=== PATIENT | female | born 1985 | race Caucasian/White ===

== ENCOUNTER 2023-09-28 12:59 | Emergency (ER) | payer OTHER, SELFPAY ==
[2023-09-28] VITALS (13 sets, daily range): BP systolic 102–159; BP diastolic 65–100; PULSE 80–132; RESP 10–22; TEMP 36.7; O2SAT 97–100
--- NOTE | ~2023-09-28 | CT_ITS ---
EXAMINATION: CT abdomen pelvis w con DATE: 09/28/2023 18:16 INDICATION: N/V X1week, hx ETOH, elev lipase/lfts TECHNIQUE: Computed tomography (CT) of the abdomen and pelvis was performed with 100 mL Omnipaque-350 intravenous contrast. Automated exposure control and iterative reconstruction technique were employe d. The dose-length product was 377.72 mGy-cm. COMPARISON: None. FINDINGS: Lower thorax: Unremarkable Liver: Diffuse fatty infiltration Biliary/Gallbladder: Mildly distended gallbladder without gallstones or inflammatory change. No bile duct dilation. Pancreas: No mass or duct dilation. Spleen: Normal. Adrenals:No mass. Kidneys: No suspicious mass, obstructing stone, or hydronephrosis. GI tract: No small or large bowel dilation. Appendix not confidently visualized. Diverticulosis witho ut diverticulitis. Mesentery/Peritoneum: No ascites, mass, or free air. Retroperitoneum: No mass. Pelvis: Pelvic organs are within normal limits. Soft Tissues: Soft tissues and body wall unremarkable. Bones: No acute osseous finding. IMPRESSION: Hepatic steatosis. Mild esophagitis/gastritis. No CT findings of pancreatitis. Mild gallbladder hydrops, without cholelithiasis or inflammatory change. Reviewed, dictated and finalized at location K. TRIC RAZOR MECHANIC
--- NOTE | 2023-09-28 13:15 | ECG_ITS ---
Measurements Intervals [place] Rate: 106 P: 62 UT: 142 QRS: 63 QRSD: 96 T: 40 QT: 340 QTc: 453 Interpretive Statements SINUS TACHYCARDIA INCOMPLETE RIGHT BUNDLE BRANCH BLOCK BORDERLINE ST-T WAVE ABNORMALITY- ANTEROLAT/INF LEADS BASELINE ARTIFACT- I, II, III, AVR, AVL ABNORMAL ECG NO PREVIOUS ECG AVAILABLE FOR COMPARISON Electronically Signed On 09-28-2023 13:45:48 FOOD AIDE by Rich Fung D.O.
[2023-09-28 13:23] LABS: Basophils Absolute Auto 0.1 K/mm3 (0.0-0.1); Eosinophils Absolute Auto 0.1 K/mm3 (0-0.3); Hematocrit 45.1 % (37.0-47.0); Hemoglobin 15.7 g/dL (12.0-15.0); Immature Granulocyte Absolute 0.01 K/mm3 (0.00-0.031); Immature Granulocyte Percent A 0.1 % (0-0.5); Lymphocytes Absolute Auto 3.41 K/mm3 (0.9-3.2); Lymphocytes Percent Auto 43.4 % (18.3-44.2); Mean Corpuscular HGB Conc 34.8 g/dl (32-36); Mean Corpuscular Hemoglobin 32.6 pg (26-34); Mean Corpuscular Volume 93.6 fl (80-100); Mean Platelet Volume 9.3 fl (7.4-10.4); Monocytes Absolute Auto 0.6 K/mm3 (0.1-0.6); Monocytes Percent Auto 7.8 % (2.6-8.5); Neutrophils Absolute Auto 3.7 K/mm3 (1.3-6.7); Neutrophils Percent Auto 46.7 % (45.5-73.1); Platelet Count Result 210 k/mm3 (150-375); Red Blood Count 4.82 M/mm3 (4.2-5.4); Red Cell Distribution Width 12.5 % (11.5-14.5); White Blood Count 7.9 K/mm3 (4.5-10.0)
--- NOTE | 2023-09-28 13:26 | ED.GENADULT ---
HPI - General Adult General Chief complaint: Alcohol <Annette Mejia INDUSTRIAL SEAMSTRESS - Last Filed: 09/28/23 13:29> Stated complaint: im just sick <Annette Mejia INDUSTRIAL SEAMSTRESS - Last Filed: 09/28/23 13:29> Time Seen by Provider: 09/28/23 17:06 <Annette Mejia INDUSTRIAL SEAMSTRESS - Last Filed: 09/28/23 13:29> Source: patient <Callie Bocanegra PA-C - Last Filed: 09/29/23 01:24> Mode of arrival: ambulatory <Callie Bocanegra PA-C - Last Filed: 09/29/23 01:24> Limitations: no limitations <Callie Bocanegra PA-C - Last Filed: 09/29/23 01:24> History of Present Illness HPI narrative: Arin Desouza is a 38 y/o female who presents with reports of feeling sick for about 3 months, she states that she hasn't been able to keep anything down for about a week. She admits that she has a hx of Alcohol abuse/ seizures and she has had intermittent nausea/vomiting for months but consistently for 1 week. Last drink of alcohol was this morning. <Annette Ley March, INDUSTRIAL SEAMSTRESS - Last Filed: 09/28/23 13:29> Arin Desouza is a 38 y/o female who presents with reports of feeling sick for about 3 months, she states that she hasn't been able to keep anything down for about a week. She admits that she has a hx of Alcohol abuse/ seizures and she has had intermittent nausea/vomiting for months but consistently for 1 week. Last drink of alcohol was this morning. Drinks up to a 5th of vodka per day. Reports burning epigastric abdominal discomfort, subjective fevers. Denies rectal bleeding, hematemesis. Reports history of withdrawal symptoms when she goes without drinking. Denies history of withdrawal seizures. She does have history of epilepsy but does not currently take any anti epileptic medications. <Callie Bocanegra PA-C - Last Filed: 09/29/23 01:24> Related Data Allergies/adverse reactions: Allergies Allergy/AdvReac Type Severity Reaction Status Date / Time caffeine Allergy Mild Unknown Verified 09/28/23 16:00 tramadol Allergy Unknown seizures Verified 09/28/23 16:00 <Annette Mejia APRN - Last Filed: 09/28/23 13:29> Review of Systems Review of Systems: CONSTITUTIONAL See HPI. ENT: Denies rhinorrhea, congestion, sore throat. CARDIOVASCULAR: Denies chest pain. RESPIRATORY: Denies dyspnea. GASTROINTESTINAL: See PI. GENITOURINARY: Denies dysuria or hematuria. SKIN: Denies rash or itching. MUSCULOSKELETAL: Denies back pain, joint pain, or myalgia. <Callie Bocanegra PA-C - Last Filed: 09/29/23 01:24> All systems reviewed & are unremarkable except as noted in HPI and below <Callie Bocanegra PA-C - Last Filed: 09/29/23 01:24> Exam Narrative: GENERAL: Mildly unkempt appearing, well-nourished, non-toxic, in no acute distress. HEAD: Normocephalic, atraumatic. NECK: Supple. No adenopathy, no masses. RESPIRATORY: Airway patent, respirations nonlabored. Clear to auscultation bilaterally, no rales, rhonchi, wheezing. CARDIOVASCULAR: Borderline tachycardic with regular rhythm without murmurs, rubs, or gallops. Peripheral pulses 2+ and equal bilaterally. ABDOMINAL: Soft, diffuse tenderness of the upper abdomen, nondistended, no hepatosplenomegaly. Normoactive BS. MUSCULOSKELETAL: Moves all extremities. No gross deformities. SKIN: Warm, dry, normal color. Splotchy erythematous appearance of face. NEURO: A&O X3. Speech clear. Cranial nerves II-XII grossly intact. Steady gait. No ataxic movements. PSYCHIATRIC: Intermittently agitated. Normal interaction. <Callie Bocanegra PA-C - Last Filed: 09/29/23 01:24> Course Vital Signs Vital signs: Vital Signs Temperature 98.1 F 09/28/23 13:09 Pulse Rate 132 H 09/28/23 13:09 Respiratory Rate 20 09/28/23 13:09 Blood Pressure 159/100 H 09/28/23 13:09 Pulse Oximetry 99 09/28/23 13:09 Oxygen Delivery Room Air 09/28/23 13:09 Temperature 98.1 F 09/28/23 13:09 Pulse Rate 80 09/28/23 20:50 Respiratory Rate 19 09/28/23 20:50 Blood P
[2023-09-28 13:36] LABS: Alanine Aminotransferase 115 U/L (6-35); Alkaline Phosphatase 93 U/L (38-126); Anion Gap 16 mmol/L (8-16); Aspartate Amino Transferase 225 U/L (14-36); Bilirubin,Total 0.8 mg/dL (0.2-1.3); Blood Urea Nitrogen 15 mg/dL (7-17); Calcium 8.8 mg/dL (8.4-10.2); Carbon Dioxide 24 mmol/L (22-30); Chloride 101 mmol/L (98-107); Estimated CRCL calculation 103 ml/min; Estimated Glomerular Filt Rate > 60; Ethanol 235 mg/dL (<10); Glucose 108 mg/dL (65-110); Lipase 798 U/L (23-300); Potassium 3.7 mmol/L (3.4-5.0); Sodium 141 mmol/L (137-145)
[2023-09-28 14:07] LABS: Prothrombin Time 13.1 Seconds (11.1-14.7)
[2023-09-28 14:12] LABS: Magnesium 1.8 mg/dL (1.6-2.3)
[2023-09-28 14:59] LABS: Appearance Urine Clear (Clear); Bacteria Urine None Seen /hpf; Bilirubin Urine 1+ (Negative); Blood Urine Trace (Negative); Color Urine Dark Yellow (Yellow); Glucose Urine UA Negative (Negative); Ketones Urine Trace mg/dL (Negative); Leukocyte Esterase Ur Trace LEU/UL (Negative); Nitrate Urine Negative (Negative); Protein Urine 1+ mg/dL (Negative); Specific Grav Ur 1.027 (1.001-1.035); Squamous Epithelial Cell Urine None seen /hpf (Few); WBC Urine 0-5 /hpf
[2023-09-28 15:17] LABS: Add Urine Microscopic? YES
[2023-09-28] MEDS: SODIUM CHLORIDE 0.9% IV 1,000 ML 999 ML IV CONT ×2 (17:48)
[2023-09-28] MEDS: ONDANSETRON INJ 4 MG/2 ML VIAL IV PUSH (17:49)
[2023-09-28] MEDS: PANTOPRAZOLE SODIUM IV 40 MG VIAL IV PUSH (17:49)
[2023-09-28] MEDS: ONDANSETRON INJ 4 MG/2 ML VIAL (20:55)
== END 2023-09-28 20:50 | disposition home or self-care (01) ==
PROVIDERS: Nurse Practitioner Family; Student in an Organized Health Care Education/Training Program; Emergency Provider Physician Assistant
DX: R74.8 Abnormal levels of other serum enzymes (principal); F10.129 Alcohol abuse with intoxication, unspecified; R74.01 Elevation of levels of liver transaminase levels; Y90.7 Blood alcohol level of 200-239 mg/100 ml
CPT/HCPCS: 36415; 74177; 80053; 80307; 81001; 81025; 83690; 83735; 84100; 85025; 85610; 93005; 96361; 96374; 96375; 96376; 99284; C9113; J2405; J7030; Q9967

== ENCOUNTER 2023-10-09 23:15 | Observation (INO) | payer OTHER, SELFPAY ==
--- NOTE | ~2023-10-09 | CT_ITS ---
EXAMINATION: CTA chest PE abdomen pel DATE: 10/10/2023 01:50 INDICATION: Tachycardia, chest and abdominal TECHNIQUE: Computed tomography angiography (CTA) of the chest was performed with 100 mL Omnipaque-350 intravenous contrast timed to evaluate the pulmonary arteries. Subsequent postcontrast images of the abdomen and pelvis are obtained. Coronal maximum intensity projection 3D-reconstructions were create d by the technologist. The dose-length product (DLP) was 557.09 mGy-cm. Automated exposure control an d iterative reconstruction technique were employed. COMPARISON: 09/28/2023 FINDINGS: CTA CHEST: The pulmonary arteries are well-opacified. No pulmonary embolism is identified. No patholo gically enlarged thoracic lymph nodes are identified. The heart size is normal. There is mild circumf erential wall thickening of the distal esophagus which could reflect esophagitis. There is mild emphy sema. ABDOMEN/PELVIS CT: The liver is diffusely low in attenuation when compared with the spleen, consisten t with hepatic steatosis. Spleen, pancreas, gallbladder, and adrenal glands are normal. The kidneys a re unremarkable. No pathologically enlarged abdominal or pelvic lymph nodes are identified. No free i ntraperitoneal gas or evidence of bowel obstruction. There is severe lumbar spondylosis at L4-5. IMPRESSION: 1. No pulmonary embolus. 2. Circumferential wall thickening of the distal esophagus which may reflect esophagitis. 3. No acute abnormality in the abdomen or pelvis. Reviewed, dictated and finalized at location A. AINER SHOP WELDER IMPRESSION: 1. No pulmonary embolus. 2. Circumferential wall thickening of the distal esophagus which may reflect es ophagitis. 3. No acute abnormality in the abdomen or pelvis.
[2023-10-09 23:43] VITALS: BP 143/92; PULSE 145; RESP 18; TEMP 36.5; O2SAT 98
[2023-10-09 23:50] VITALS: BP 125/100; PULSE 124; RESP 20; O2SAT 97
[2023-10-09 23:51] VITALS: PULSE 121; RESP 19; O2SAT 97
[2023-10-09 23:51] LABS: Basophils Absolute Auto 0.1 K/mm3 (0.0-0.1); Basophils Percent Auto 0.9 % (0.2-1.2); Eosinophils Percent Auto 0.3 % (0-4.4); Hematocrit 47.4 % (37.0-47.0); Hemoglobin 16.1 g/dL (12.0-15.0); Immature Granulocyte Absolute 0.01 K/mm3 (0.00-0.031); Immature Granulocyte Percent A 0.1 % (0-0.5); Lymphocytes Absolute Auto 4.49 K/mm3 (0.9-3.2); Lymphocytes Percent Auto 48.8 % (18.3-44.2); Mean Corpuscular Hemoglobin 32.7 pg (26-34); Mean Corpuscular Volume 96.1 fl (80-100); Mean Platelet Volume 9.4 fl (7.4-10.4); Monocytes Absolute Auto 0.7 K/mm3 (0.1-0.6); Monocytes Percent Auto 7.4 % (2.6-8.5); Neutrophils Absolute Auto 3.9 K/mm3 (1.3-6.7); Neutrophils Percent Auto 42.5 % (45.5-73.1); Platelet Count Result 199 k/mm3 (150-375); Red Blood Count 4.93 M/mm3 (4.2-5.4); White Blood Count 9.2 K/mm3 (4.5-10.0)
[2023-10-10] VITALS (59 sets, daily range): BP systolic 85–134; BP diastolic 44–96; PULSE 70–134; RESP 12–32; TEMP 35.8–36.8; O2SAT 96–100; BMI 23.5
--- NOTE | 2023-10-10 | ECG_ITS ---
Measurements Intervals [place] Rate: 109 P: 72 [place]: 146 QRS: 71 QRSD: 90 T: 53 QT: 349 QTc: 471 Interpretive Statements SINUS TACHYCARDIA BORDERLINE ST ABNORMALITY- ANTEROLAT/INF LEADS ABNORMAL ECG NO PREVIOUS ECG AVAILABLE FOR COMPARISON Electronically Signed On 10-10-2023 9:18:22 CARDIOVASCULAR RN by Rich Fung D.O.
[2023-10-10 00:01] LABS: Alanine Aminotransferase 97 U/L (6-35); Albumin Level 5.2 g/dL (3.5-5.1); Alkaline Phosphatase 100 U/L (38-126); Anion Gap 24 mmol/L (8-16); Aspartate Amino Transferase 137 U/L (14-36); Bilirubin,Total 0.8 mg/dL (0.2-1.3); Blood Urea Nitrogen 19 mg/dL (7-17); Carbon Dioxide 18 mmol/L (22-30); Chloride 99 mmol/L (98-107); Estimated CRCL calculation 90 ml/min; Estimated Glomerular Filt Rate > 60; Glucose 75 mg/dL (65-110); Lipase 729 U/L (23-300); Potassium 4.1 mmol/L (3.4-5.0); Sodium 141 mmol/L (137-145)
[2023-10-10 00:55] LABS: Fractional Inspired Oxygen 21 %; HCO3 VBG 21.1 mEq/l (24.0-30.0); PCO2 VBG 35.9 mmHg (42.0-48.0); PO2 VBG 75.6 mmHg (35.0-45.0); pH VBG 7.387 (7.300-7.400)
[2023-10-10] MEDS: ONDANSETRON INJ 4 MG/2 ML VIAL IV PUSH ×2 (00:57→03:42)
[2023-10-10] MEDS: DEXTROSE 5%/LACTATED RINGERS 1,000 ML 999 ML IV CONT ×2 (00:57→00:58)
[2023-10-10] MEDS: PANTOPRAZOLE SODIUM IV 40 MG VIAL IV PUSH ×3 (00:57→21:38)
[2023-10-10 00:58] LABS: Device ROOM AIR
[2023-10-10 01:01] LABS: Appearance Urine Cloudy (Clear); Bacteria Urine Rare /hpf; Bilirubin Urine Negative (Negative); Blood Urine 3+ (Negative); Color Urine Dark Yellow (Yellow); Glucose Urine UA Negative (Negative); Hyaline Casts Urine Present /lpf; Ketones Urine 3+ mg/dL (Negative); Leukocyte Esterase Ur Negative LEU/UL (Negative); Need Manual Microscopic Reviewed; Nitrate Urine Negative (Negative); Protein Urine 2+ mg/dL (Negative); Specific Grav Ur 1.022 (1.001-1.035); Squamous Epithelial Cell Urine Moderate /hpf (Few); WBC Urine 0-5 /hpf; pH Urine 5.5 (5.0-9.0)
--- NOTE | 2023-10-10 01:01 | ED.ABDPAIN ---
HPI - Abdominal Pain General Chief Complaint: Abdominal Pain <Tonya Jeffrey PA-C - Last Filed: 10/10/23 17:03> Stated Complaint: N/V, abd pain <Tonya Jeffrey PA-C - Last Filed: 10/10/23 17:03> Time Seen by Provider: 10/09/23 23:48 <Tonya Jeffrey PA-C - Last Filed: 10/10/23 17:03> History of Present Illness HPI narrative: 38-year-old female with a history of alcoholism and epilepsy reports for evaluation for multiple medical complaints. Patient states for multiple weeks, she has been on able to keep any water or food down. States she has had 3 dental holes into crackers in total since she was seen in the ED on 09/28/2023 for nausea and vomiting. Patient notes that she drinks approximately a 5th of vodka per day, however has decreased her alcohol intake secondary to vomiting. States she has had 1 pt of alcohol a day. She reports subjective fevers, epigastric abdominal pain, nausea and vomiting. She reports she may have seen blood in her vomit after she saw streaks and pieces of red and brown in her vomit. She also states that she may have had a few episodes of dark tarry stools but denies hematochezia. She reports difficulty breathing and intermittent substernal chest pain. States the chest pain occurs at night and wake her up at night, however she is not currently having chest pain. She denies radiating pain, aggravating or alleviating factors. States when the pain occurs last approximately 1 minute. She does not history of COPD and chronic bronchitis and states that she has had a productive cough for 1 week. She knows she has been recently exposed to COVID. Her last alcoholic drink was prior to arrival. The patient was seen in the ED on 09/28/2023, she was found to be intoxicated in her workup at that time was significant for an elevated lipase in the 700s. She was sent home with Protonix and Zofran and advised to follow closely with PCP. Patient states she has been taking the Zofran as directed, however has not been taking her Protonix daily because it gives her migraines. She denies recent seizures, hallucinations, dysuria or hematuria.. States she does not take any antiepileptics for her diagnosis of epilepsy because she has not seen a healthcare provider in 6 years. When asked why she is not been seen she says, ?because if anything is wrong with me, I don't want to know. She has scheduled an appointment with a PCP on October 27. LMP 1.5 weeks ago. <Tonya Jeffrey PA-C - Last Filed: 10/10/23 17:03> Related Data Allergies/Adverse Reactions: Allergies Allergy/AdvReac Type Severity Reaction Status Date / Time caffeine Allergy Mild Unknown Verified 09/28/23 16:00 tramadol Allergy Unknown seizures Verified 09/28/23 16:00 <Tonya Jeffrey PA-C - Last Filed: 10/10/23 17:03> Review of Systems Review of Systems: CONSTITUTIONAL: Denies fever, chills, or sweats. EYES: Denies visual changes, redness, or discharge. ENT: Denies rhinorrhea, congestion, sore throat, or otalgia. CARDIOVASCULAR: See HPI RESPIRATORY: See HPI GASTROINTESTINAL: See HPI GENITOURINARY: Denies dysuria or hematuria. SKIN: Denies rash or itching. MUSCULOSKELETAL: Denies back pain, joint pain, or myalgia. NEUROLOGIC: Denies headache, numbness, or weakness. PSYCHIATRIC: Denies anxiety or depression. <Tonya Jeffrey PA-C - Last Filed: 10/10/23 17:03> [facility] Past Medical History Medical History: Medical History (Updated 10/10/23 @ 13:22 by Jovanni Sellers MD) Chronic bronchitis Mitral valve prolapse Seizure off meds 5-6yrs SVT (supraventricular tachycardia) <Tonya Jeffrey PA-C - Last Filed: 10/10/23 17:03> Surgical History Surgical History: Surgical History (Updated 10/10/23 @ 13:13 by Jovanni Sellers MD) No history of previous surgery <Tonya Jeffrey PA-C - Last Filed: 10/10/23 17:03> Family History Family History: Family History (Updated 10/10/23 @ 13
[2023-10-10 01:02] LABS: Add Urine Microscopic? YES
[2023-10-10 01:05] LABS: Urine Pregnancy Test Negative
[2023-10-10 01:06] LABS: Pregnancy On Board Control Positive
[2023-10-10 01:07] LABS: Ethanol 292 mg/dL (<10); Lactic Acid Reflex 3.5 mmol/L (0.7-2.0); Magnesium 1.8 mg/dL (1.6-2.3)
--- NOTE | 2023-10-10 01:16 | PC.NURSE ---
Patient taken to CT via stretcher at this time.
[2023-10-10 01:20] LABS: NT Pro B Type Natriuretic Pept 27 pg/mL (19.9-100); Troponin I < 0.012 ng/mL (0.000-0.034)
[2023-10-10 01:34] LABS: Prothrombin Time 13.7 Seconds (11.1-14.7)
[2023-10-10] MEDS: LACTATED RINGERS 1,000 ML 999 ML IV CONT (03:41)
[2023-10-10] MEDS: BELLADONNA ALK/PHENOB ELIX 10 ML, MAG HYDROX/ALUMINUM HYD/SIMETH 30 ML, LIDOCAINE HCL 2... PO (03:42)
[2023-10-10 03:54] LABS: Reflex Lactic Acid Yes or No Add Lactic
[2023-10-10 06:07] LABS: Lactic Acid Reflex 2.9 mmol/L (0.7-2.0)
[2023-10-10 06:41] LABS: Influenza A QL RT-PCR Negative (Negative); Influenza B QL RT-PCR Negative (Negative); SARS-CoV-2 RNA PCR Negative (Negative)
[2023-10-10] MEDS: METOCLOPRAMIDE HCL INJ 10 MG/2 ML VIAL IV PUSH (06:57)
[2023-10-10] MEDS: THIAMINE 500 MG/NS 100 ML 500 MG/100 ML BAG 200 MG IVPB (08:03)
--- NOTE | 2023-10-10 08:52 | ADMGEN ---
This patient, Arin Roger, was admitted to IMU Room 204-01. Patient/family oriented to hospital policies and general routines including ID bracelet, bed and alarms, visiting hours, pain management, procedures, bathroom and other care routines, personal items, smoking policy, room service/diet, and visiting hours. Information on how to activate the Rapid Response Team has been discussed. Patient/Family are encouraged to report perceived risks to care and to ask questions if they do not understand what they are told or what they should do.
[2023-10-10] MEDS: LORazepam INJ (*CRX) 2 MG/ML VIAL IV PUSH ×4 (09:05→21:46)
[2023-10-10] MEDS: SODIUM CHLORIDE 0.9% IV 1,000 ML 150 ML IV CONT ×3 (09:05→23:31)
[2023-10-10 09:22] LABS: Basophils Percent Auto 0.6 % (0.2-1.2); Hematocrit 37.1 % (37.0-47.0); Hemoglobin 12.7 g/dL (12.0-15.0); Immature Granulocyte Absolute 0.01 K/mm3 (0.00-0.031); Immature Granulocyte Percent A 0.2 % (0-0.5); Lymphocytes Absolute Auto 1.23 K/mm3 (0.9-3.2); Mean Corpuscular HGB Conc 34.2 g/dl (32-36); Mean Corpuscular Hemoglobin 32.6 pg (26-34); Mean Corpuscular Volume 95.4 fl (80-100); Mean Platelet Volume 9.5 fl (7.4-10.4); Monocytes Absolute Auto 0.5 K/mm3 (0.1-0.6); Monocytes Percent Auto 11.2 % (2.6-8.5); Neutrophils Absolute Auto 2.9 K/mm3 (1.3-6.7); Platelet Count Result 133 k/mm3 (150-375); Red Blood Count 3.89 M/mm3 (4.2-5.4); Red Cell Distribution Width 12.9 % (11.5-14.5); White Blood Count 4.7 K/mm3 (4.5-10.0)
[2023-10-10 09:31] LABS: Anion Gap 15 mmol/L (8-16); Blood Urea Nitrogen 14 mg/dL (7-17); Calcium 8.5 mg/dL (8.4-10.2); Carbon Dioxide 20 mmol/L (22-30); Chloride 100 mmol/L (98-107); Estimated CRCL calculation 148 ml/min; Estimated Glomerular Filt Rate > 60; Glucose 78 mg/dL (65-110); Lactic Acid 1.9 mmol/L (0.7-2.0); Potassium 3.9 mmol/L (3.4-5.0); Sodium 135 mmol/L (137-145)
[2023-10-10] MEDS: SUCRALFATE SUSP 100 MG/ML 10 ML UDC 1000 MG PO ×3 (11:20→21:38)
[2023-10-10 11:57] LABS: Glucose Point of Care 63 mg/dl (65-105)
[2023-10-10 11:57] LABS: Glucose Point of Care 92 mg/dl (65-105)
--- NOTE | 2023-10-10 12:39 | PM.IMHP ---
H&P: HPI History of Present Illness Date/Time: 10/10/23 12:39 Chief Complaint: 'I've been drinking too much' Narrative: 38yo female with hx of alcoholism, seizures and SVT here for nausea and vomiting. Patient drinks a 5th of alcohol per day for ?long time?. She has been to rehab in the past with her last time about 5 years ago. She has a history of DTs but no history of withdrawal seizures. She has a hx of seizures and took herself off medications 5-6 years ago. She does not drive. She has never had a DUI. Her last drink was just prior to coming to the emergency last night. Patient developed nausea and vomiting few weeks ago. She presented to the emergency room on 09/28/2023 with a complain of 3 month history of feeling sick. Patient was given IV fluids, antiemetics and Protonix. She felt better was able to tolerate oral intake. According to her boyfriend, patient continued to feel well up until about 4 days ago when she had recurrence of her symptoms of nausea and vomiting. She is still able to drink vodka but is unable to tolerate oral intake otherwise. She has been feeling hot and cold that she thinks she has fevers. She has been having sweats. She has epigastric ?burning?. She denies any melena, hematochezia or hematemesis but mentioned to the ER doctor that she was having dark tarry stools. She did have an episode of chest pain a few days ago that lasted few seconds. It occurred at rest. She has been feeling slightly shortness of breath but does have a chronic bronchitis with chronic cough productive yellow sputum. No dysuria or hematuria. No lower abdominal pain or back pain. Because of the symptoms, she presented emergency room for evaluation. Emergency room she was tachycardic at 145 with a blood pressure 143/92. She was 98% on room air. EKG showed sinus tachycardia with a heart rate of 109. Stool was guaiac negative. cTA of the chest showed no PE. No focal infiltrates or effusions. CT the abdomen pelvis showed no acute findings but did show severe hepatic steatosis. The pancreas and gallbladder appeared normal. test was negative. Lactic acid was 3.5. Serum bicarb was 18 with anion gap 24. AST and ALT are mildly elevated but improved from 9 days ago. Troponin was negative. BNP was 27. Lipase was 729 also improved from 9 days ago. Urinalysis showed 2+ protein, 3+ ketones and 3+ blood with 6-10 red cells. She was treated with Zofran Protonix and IV fluids. She was admitted for further care. Review of Systems Review of Systems: All systems reviewed & are unremarkable except as noted in HPI and below PMFSH Past Medical History Medical History (Updated 10/10/23 @ 13:22 by Jovanni Sellers MD) Chronic bronchitis Mitral valve prolapse Seizure off meds 5-6yrs SVT (supraventricular tachycardia) Surgical History Surgical History (Updated 10/10/23 @ 13:13 by Jovanni Sellers MD) No history of previous surgery Family History Family History (Updated 10/10/23 @ 13:14 by Jovanni Sellers MD) Mother Lung cancer Father Seizure Social History Social History (Updated 10/10/23 @ 13:15 by Jovanni Sellers MD) Social History: She lives with her boyfriend and a friend. She smokes a pack a day for the past 27 years. Alcohol use as mentioned above. She smokes marijuana but denies drug use or history of IV drug use. She is full code. She nominates her sister to be the individual who would make medical decisions for her if she is unable. Smoking packs per day: 1 Smoking cigarettes per day: 20.0 Smoking status: Current every day smoker Tobacco type: cigarettes Alcohol intake: current Drinks per week: 7 Substance use: current Substance use type: marijuana Other substance usage details: Drinks 1 pint of vodka a day. Lack of Transportation: No Lack of Food: Never True Current Housing: I Have Housing Concerned About Future Housing: Decline to Answer Difficulty Pa
[2023-10-10 13:38] LABS: Creatine Kinase 51 U/L (30-135)
[2023-10-10 17:49] LABS: Glucose Point of Care 119 mg/dl (65-105)
[2023-10-10] MEDS: chlordiazePOXIDE (*CRX) 25 MG CAPSULE PO ×2 (18:22→23:34)
[2023-10-11] VITALS (8 sets, daily range): BP systolic 106–116; BP diastolic 71–78; PULSE 56–82; RESP 16–18; TEMP 36.1–36.6; O2SAT 98–100
[2023-10-11] MEDS: LORazepam INJ (*CRX) 2 MG/ML VIAL IV PUSH ×2 (02:31→08:16)
[2023-10-11 04:46] LABS: Hematocrit 38.2 % (37.0-47.0); Hemoglobin 12.8 g/dL (12.0-15.0); Immature Platelet Fraction Pct 6.9 % (0.9-11.2); Mean Corpuscular HGB Conc 33.5 g/dl (32-36); Mean Corpuscular Hemoglobin 32.7 pg (26-34); Mean Corpuscular Volume 97.7 fl (80-100); Mean Platelet Volume 11.1 fl (7.4-10.4); Platelet Count Result 99 k/mm3 (150-375); Red Blood Count 3.91 M/mm3 (4.2-5.4); Red Cell Distribution Width 12.6 % (11.5-14.5); White Blood Count 6.4 K/mm3 (4.5-10.0)
[2023-10-11 05:11] LABS: Potassium 3.4 mmol/L (3.4-5.0)
[2023-10-11 05:15] LABS: Alanine Aminotransferase 72 U/L (6-35); Albumin Level 3.8 g/dL (3.5-5.1); Alkaline Phosphatase 67 U/L (38-126); Anion Gap 9 mmol/L (8-16); Aspartate Amino Transferase 137 U/L (14-36); Bilirubin,Total 1.7 mg/dL (0.2-1.3); Blood Urea Nitrogen 13 mg/dL (7-17); Calcium 8.6 mg/dL (8.4-10.2); Carbon Dioxide 24 mmol/L (22-30); Chloride 99 mmol/L (98-107); Estimated CRCL calculation 121 ml/min; Estimated Glomerular Filt Rate > 60; Glucose 74 mg/dL (65-110); Sodium 132 mmol/L (137-145)
[2023-10-11] MEDS: chlordiazePOXIDE (*CRX) 25 MG CAPSULE PO ×2 (05:59→11:36)
[2023-10-11] MEDS: SUCRALFATE SUSP 100 MG/ML 10 ML UDC 1000 MG PO ×2 (05:59→11:37)
[2023-10-11] MEDS: SODIUM CHLORIDE 0.9% IV 1,000 ML 150 ML IV CONT (05:59)
[2023-10-11] MEDS: FOLIC ACID 1 MG TABLET PO (08:14)
[2023-10-11] MEDS: MULTIVITAMINS THERAPEUTIC TAB (*BKC) 1 TABLET PO (08:14)
[2023-10-11] MEDS: POTASSIUM CHLORIDE 20 MEQ ER TABLET PO (08:14)
[2023-10-11] MEDS: THIAMINE HCL 200 MG/2 ML VIAL 100 MG IV PUSH (08:15)
[2023-10-11] MEDS: PANTOPRAZOLE SODIUM IV 40 MG VIAL IV PUSH (08:15)
[2023-10-11 13:04] LABS: Glucose Point of Care 84 mg/dl (65-105)
--- NOTE | 2023-10-11 14:01 | PM.DS ---
DS: Admitting Diagnosis Discharge Date 10/11/23 Admitting Diagnosis nausea and vomiting DS: Discharge Diagnosis Discharge Diagnosis (1) Alcohol intoxication: Qualifiers: Complication of substance-induced condition: uncomplicated Qualified Code(s): F10.920 - Alcohol use, unspecified with intoxication, uncomplicated Code(s): F10.929 - Alcohol use, unspecified with intoxication, unspecified Status: Acute (2) Alcoholic ketoacidosis: Code(s): E87.29 - Other acidosis Status: Acute (3) Nausea & vomiting: Qualifiers: Vomiting type: unspecified Qualified Code(s): R11.2 - Nausea with vomiting, unspecified Code(s): R11.2 - Nausea with vomiting, unspecified Status: Acute (4) Alcoholic fatty liver: Code(s): K70.0 - Alcoholic fatty liver Status: Acute (5) Dehydration: Code(s): E86.0 - Dehydration Status: Acute (6) Atypical chest pain: Code(s): R07.89 - Other chest pain Status: Acute (7) Tobacco abuse: Code(s): Z72.0 - Tobacco use Status: Acute (8) Lactic acidosis: Code(s): E87.20 - Acidosis, unspecified Status: Acute (9) Alcohol withdrawal: Code(s): F10.939 - Alcohol use, unspecified with withdrawal, unspecified Status: Acute DS: Summary Hospital Course Reason for hospitalization: 38yo female with hx of alcoholism, seizures and SVT here for nausea and vomiting. Please see H&P for details. Hospital Course: Patient was tachycardic at 145 with a blood pressure 143/92.? She was 98% on room air.? EKG showed sinus tachycardia with a heart rate of 109.? Stool was guaiac negative.? CTA of the chest showed no PE.? No focal infiltrates or effusions.? CT the abdomen pelvis showed no acute findings but did show severe hepatic steatosis which has been seen before.? The pancreas and gallbladder appeared normal.? test was negative.? Lactic acid was 3.5.? Serum bicarb was 18 with anion gap 24.? AST and ALT are mildly elevated but improved from 9 days ago.? Troponin was negative.? BNP was 27.? Lipase was 729 also improved from 9 days ago.? Urinalysis showed 2+ protein, 3+ ketones and 3+ blood with 6-10 red cells.? She was treated with Zofran, Protonix and IV fluids.?She was also started on thiamine, folate and scheduled Librium. She was covered for gastritis with carafate and protonix. She had clinical improvement. Her anion gap closed. Platelet count was low felt related to direct toxic effects of alcohol on the bone marrow and/or from sequestration. She is up walking in the room. She is eating and toelrating it. She feels much better and feels ready for discharge. She was educated about the benefits of abstaining from alcohol. She was given information about resources to help stop drinking alcohol. Status at Discharge Cognitive/behavioral status at discharge: stable Time Spent with Patient Time attestation: Total time spent providing and/or coordinating discharge services:36 minutes Time spent: Greater than 30 minutes Exam Narrative: AF 97.6 109/78 71 18 99% ra Gen - NARD Chest - CTA bilaterally, nml RR CV - RRR S1/S2; Tele showing no significant dysrhythmias Abd -soft. Nontender. Positive sounds Ext -no pedal edema Psych - normal mood and affect. Minimal tremor noted Skin - warm and dry. DS: Data Data Completed and Pending Labs on day of discharge: Labs from last 24 hours 10/11/23 10/11/23 10/10/23 11:19 04:23 17:46 WBC 6.4 RBC 3.91 L Hgb 12.8 Hct 38.2 MCV 97.7 MCH 32.7 MCHC 33.5 RDW 12.6 Plt Count 99 L MPV 11.1 H % Immature Plt Fraction 6.9 Sodium 132 L Potassium 3.4 Chloride 99 Carbon Dioxide 24 Anion Gap 9 BUN 13 Creatinine 0.50 L Estim Creat Clear Calc 121 Estimated GFR > 60 Glucose 74 POC Capillary Glucose 84 119 H Calcium 8.6 Total Bilirubin 1.7 H AST 13
== END 2023-10-11 14:30 | disposition home or self-care (01) ==
LOC: ANHED 10-10 06:59 → ANHIMU 10-11 14:11
PROVIDERS: Emergency Medicine; Admitting Provider Internal Medicine; Emergency Provider Physician Assistant; PCP Internal Medicine Gastroenterology; Visit Provider Internal Medicine
DX: F10.920 Alcohol use, unspecified with intoxication, uncomplicated (principal); Y90.7 Blood alcohol level of 200-239 mg/100 ml; E87.29 Other acidosis; K70.0 Alcoholic fatty liver; E86.0 Dehydration; R07.89 Other chest pain; G40.909 Epilepsy, unspecified, not intractable, without status epilepticus; J42 Unspecified chronic bronchitis; I47.10 Supraventricular tachycardia, unspecified; R94.31 Abnormal electrocardiogram [ECG] [EKG]; Z20.822 Contact with and (suspected) exposure to COVID-19; F17.210 Nicotine dependence, cigarettes, uncomplicated; F12.90 Cannabis use, unspecified, uncomplicated; Z79.899 Other long term (current) drug therapy
CPT/HCPCS: 36415; 71275; 74177; 80048; 80053; 80307; 81001; 81025; 82550; 82803; 82948; 83605; 83690; 83735; 83880; 84484; 85025; 85027; 85055; 85610; 85730; 87636; 93005; 96361; 96365; 96375; 96376; 99285; A9270; C9113; G0378; G0379; J2060; J2405; J2765; J3411; J7030; J7120; J7121; Q9967

== ENCOUNTER 2023-11-09 20:09 | Inpatient (IN) | payer OTHER, SELFPAY ==
--- NOTE | ~2023-11-09 | CT_ITS ---
EXAMINATION: CT abdomen pelvis w con DATE: 11/10/2023 06:18 INDICATION: Abdominal pain. TECHNIQUE: Computed tomography (CT) of the abdomen and pelvis was performed with 100 mL Omnipaque 350 intravenous contrast. Automated exposure control and iterative reconstruction technique were employe d. The dose-length product was 297.15 mGy-cm. COMPARISON: CT abdomen and pelvis 10/10/2023 FINDINGS: The visualized portions of the lung bases demonstrate mild atelectasis. No pleural effusion . The heart size is normal. No pericardial effusion. There is diffuse hepatic steatosis. The gallblad mack and spleen are normal. There is fat stranding around the head of the pancreas, consistent with ac [facility] interstitial pancreatitis. The adrenal glands are normal. There is cortical thinning of the kidne ys. There are no dilated loops of bowel. The appendix is not visualized. There are no pathologically enlarged lymph nodes. There is wall thickening of the distal esophagus. There is physiologic fluid in the pelvis. There is lumbar levoscoliosis and severe spondylosis. IMPRESSION: 1. Acute interstitial pancreatitis. 2. Diffuse hepatic steatosis. 3. Wall thickening of the distal esophagus, likely esophagitis. Reviewed, dictated and finalized at location E. STO WRITER OPERATOR
[2023-11-09 20:12] VITALS: BP 135/107; PULSE 121; RESP 16; TEMP 36.2; O2SAT 100
[2023-11-09 20:28] LABS: Basophils Absolute Auto 0.1 K/mm3 (0.0-0.1); Basophils Percent Auto 0.5 % (0.2-1.2); Eosinophils Absolute Auto 0.1 K/mm3 (0-0.3); Eosinophils Percent Auto 0.6 % (0-4.4); Hematocrit 46.4 % (37.0-47.0); Immature Granulocyte Absolute 0.02 K/mm3 (0.00-0.031); Immature Granulocyte Percent A 0.2 % (0-0.5); Lymphocytes Absolute Auto 1.75 K/mm3 (0.9-3.2); Lymphocytes Percent Auto 15.5 % (18.3-44.2); Mean Corpuscular HGB Conc 34.5 g/dl (32-36); Mean Corpuscular Volume 95.7 fl (80-100); Mean Platelet Volume 10.3 fl (7.4-10.4); Monocytes Percent Auto 8.6 % (2.6-8.5); Neutrophils Absolute Auto 8.4 K/mm3 (1.3-6.7); Neutrophils Percent Auto 74.6 % (45.5-73.1); Platelet Count Result 147 k/mm3 (150-375); Red Blood Count 4.85 M/mm3 (4.2-5.4); Red Cell Distribution Width 12.9 % (11.5-14.5); White Blood Count 11.3 K/mm3 (4.5-10.0)
[2023-11-09 20:38] LABS: Ethanol 149 mg/dL (<10)
[2023-11-10] VITALS (12 sets, daily range): BP systolic 102–113; BP diastolic 64–82; PULSE 77–102; RESP 14–27; TEMP 36.3–36.8; O2SAT 98–100; BMI 22.5
[2023-11-10 03:46] LABS: Alanine Aminotransferase 236 U/L (6-35); Albumin Level 4.5 g/dL (3.5-5.1); Alkaline Phosphatase 114 U/L (38-126); Anion Gap 20 mmol/L (8-16); Aspartate Amino Transferase 555 U/L (14-36); Blood Urea Nitrogen 20 mg/dL (7-17); Calcium 9.5 mg/dL (8.4-10.2); Carbon Dioxide 22 mmol/L (22-30); Chloride 88 mmol/L (98-107); Estimated CRCL calculation 121 ml/min; Estimated Glomerular Filt Rate > 60; Glucose 81 mg/dL (65-110); Potassium 3.2 mmol/L (3.4-5.0); Sodium 130 mmol/L (137-145)
[2023-11-10 04:07] LABS: Lipase 5443 U/L (23-300)
[2023-11-10] MEDS: THIAMINE 500 MG/NS 100 ML 500 MG/100 ML BAG 200 MG IVPB (05:03)
[2023-11-10] MEDS: PROCHLORPERAZINE EDISYLATE 10 MG/2 ML VIAL IV PUSH (05:03)
[2023-11-10] MEDS: SODIUM CHLORIDE 0.9% IV 1,000 ML 999 ML IV CONT ×2 (05:03→06:03)
[2023-11-10 06:16] LABS: Appearance Urine Cloudy (Clear); Bacteria Urine Rare /hpf; Bilirubin Urine 1+ (Negative); Blood Urine 2+ (Negative); Color Urine Dark Yellow (Yellow); Glucose Urine UA Negative (Negative); Ketones Urine 4+ mg/dL (Negative); Leukocyte Esterase Ur 1+ LEU/UL (Negative); Nitrate Urine Positive (Negative); Protein Urine 2+ mg/dL (Negative); Specific Grav Ur 1.022 (1.001-1.035); Squamous Epithelial Cell Urine Few /hpf (Few); WBC Urine 51-100 /hpf; pH Urine 5.5 (5.0-9.0)
[2023-11-10 06:24] LABS: Add Urine Microscopic? YES
--- NOTE | 2023-11-10 06:30 | ED.GENADULT ---
HPI - General Adult General Chief complaint: Alcohol Stated complaint: alcohol w/drawl Time Seen by Provider: 11/10/23 04:18 History of Present Illness HPI narrative: Patient is a 38-year-old female who presents emergency department with chief complaint of nausea vomiting and abdominal pain. The patient has history of alcoholism and was actually admitted to the hospital recently for alcohol withdrawal the patient states that she was discharged home on a Librium taper and ran out a Librium and started drinking again patient reports that she has been able to keep fluids down reports he feels extremely dehydrated and reports that she has pain in the epigastric region. The patient reports that she has noticed that she has had a little bit of coffee-ground colored vomit the patient reports that she has also started to feel shaky because she has not been able to drink her normal amount. Related Data Allergies Allergy/AdvReac Type Severity Reaction Status Date / Time caffeine Allergy Mild Unknown Verified 11/10/23 03:09 tramadol Allergy Unknown seizures Verified 11/10/23 03:09 Review of Systems Review of Systems: A 10 system review of systems was completed on the patient and is negative except for what is stated in the HPI. Nursing and ancillary documentation was reviewed. [facility] Past Medical History Medical History Alcohol withdrawal Chronic bronchitis Mitral valve prolapse Seizure off meds 5-6yrs SVT (supraventricular tachycardia) Surgical History Surgical History No history of previous surgery Family History Family History Mother Lung cancer Father Seizure Social History Social History Social History: She lives with her boyfriend and a friend. She smokes a pack a day for the past 27 years. Alcohol use as mentioned above. She smokes marijuana but denies drug use or history of IV drug use. She is full code. She nominates her sister to be the individual who would make medical decisions for her if she is unable. Smoking packs per day: 1 Smoking cigarettes per day: 20.0 Smoking status: Current every day smoker Tobacco type: cigarettes Alcohol intake: current Drinks per week: 7 Substance use: current Substance use type: marijuana Other substance usage details: Drinks 1 pint of vodka a day. Lack of Transportation: No Lack of Food: Never True Current Housing: I Have Housing Concerned About Future Housing: Decline to Answer Difficulty Paying Gas/Electric Bills: Decline to Answer Difficulty Paying for Meds: Decline to Answer Currently Unemployed: Decline to Answer Education: Decline to Answer Difficulty w/ Childcare or Family Care: Decline to Answer Spiritual care concerns: No Exam Narrative: GENERAL: Well-appearing, well-nourished, and in no acute distress. HEAD: Normocephalic, atraumatic. EYES: PERRLA and EOMI. ENT: Nares clear, no rhinorrhea or epistaxis. Mucous membranes dry. NECK: Supple. CHEST: Clear to auscultation. No respiratory distress. HEART: Regular rate and rhythm. No murmur heard. Normal peripheral pulses. ABDOMEN: Soft, tenderness to palpation epigastric region, nondistended, normal active bowel sounds. EXTREMITIES: Normal range of motion. No edema. SKIN: Warm, dry, no rash. NEURO: No focal deficits. Alert and oriented x3. PSYCH: Normal mood and affect. Course Vital Signs Vital signs: Vital Signs Temperature 36.2 C L 11/09/23 20:12 Pulse Rate 121 H 11/09/23 20:12 Respiratory Rate 16 11/09/23 20:12 Blood Pressure 135/107 H 11/09/23 20:12 Pulse Oximetry 100 11/09/23 20:12 Oxygen Delivery Room Air 11/09/23 20:12 Temperature 36.2 C L 11/09/23 20:12 Pulse Rate 92 11/10/23 05
--- NOTE | 2023-11-10 07:34 | PC.NURSE ---
Per Darshana VARELA and Maria R Krishnamurthy, pt is admitted to a room - waiting on room to be cleaned. This RN assumed care of pt, she is resting and alert to verbal stimuli - understanding of awaiting room assignment. Pt lights dimmed and fluids infused. No request at this time. VSS.
[2023-11-10] MEDS: KCL 20 MEQ/D5/0.45% SOD CHL 1,000 ML 125 ML IV CONT (08:27)
--- NOTE | 2023-11-10 08:30 | ADMGEN ---
This patient, Arin Roger, was admitted to IMU Room 206-02. Patient/family oriented to hospital policies and general routines including ID bracelet, bed and alarms, visiting hours, pain management, procedures, bathroom and other care routines, personal items, smoking policy, room service/diet, and visiting hours. Information on how to activate the Rapid Response Team has been discussed. Patient/Family are encouraged to report perceived risks to care and to ask questions if they do not understand what they are told or what they should do.
[2023-11-10 09:37] LABS: Basophils Percent Auto 0.5 % (0.2-1.2); Eosinophils Percent Auto 0.5 % (0-4.4); Hematocrit 36.2 % (37.0-47.0); Hemoglobin 12.5 g/dL (12.0-15.0); Immature Granulocyte Absolute 0.01 K/mm3 (0.00-0.031); Immature Granulocyte Percent A 0.2 % (0-0.5); Immature Platelet Fraction Pct 7.1 % (0.9-11.2); Lymphocytes Absolute Auto 0.96 K/mm3 (0.9-3.2); Lymphocytes Percent Auto 15.3 % (18.3-44.2); Mean Corpuscular HGB Conc 34.5 g/dl (32-36); Mean Corpuscular Hemoglobin 33.2 pg (26-34); Mean Platelet Volume 10.3 fl (7.4-10.4); Monocytes Absolute Auto 0.5 K/mm3 (0.1-0.6); Monocytes Percent Auto 7.5 % (2.6-8.5); Neutrophils Absolute Auto 4.8 K/mm3 (1.3-6.7); Platelet Count Result 110 k/mm3 (150-375); Red Blood Count 3.77 M/mm3 (4.2-5.4); Red Cell Distribution Width 12.6 % (11.5-14.5); White Blood Count 6.3 K/mm3 (4.5-10.0)
[2023-11-10 09:55] LABS: Alanine Aminotransferase 179 U/L (6-35); Albumin Level 3.5 g/dL (3.5-5.1); Alkaline Phosphatase 80 U/L (38-126); Anion Gap 14 mmol/L (8-16); Aspartate Amino Transferase 360 U/L (14-36); Bilirubin,Total 1.9 mg/dL (0.2-1.3); Blood Urea Nitrogen 18 mg/dL (7-17); Carbon Dioxide 22 mmol/L (22-30); Chloride 96 mmol/L (98-107); Estimated CRCL calculation 121 ml/min; Estimated Glomerular Filt Rate > 60; Glucose 84 mg/dL (65-110); Potassium 3.5 mmol/L (3.4-5.0); Sodium 132 mmol/L (137-145)
[2023-11-10 10:29] LABS: Lipase 4362 U/L (23-300)
[2023-11-10] MEDS: MORPHINE SULFATE (*CRX) 2 MG/ML INJ IV PUSH ×3 (10:44→21:33)
[2023-11-10 11:19] LABS: Glucose Point of Care 84 mg/dl (65-105)
[2023-11-10] MEDS: chlordiazePOXIDE (*CRX) 25 MG CAPSULE PO ×2 (13:23→21:27)
--- NOTE | 2023-11-10 17:10 | PM.IMHP ---
H&P: HPI History of Present Illness Date/Time: 11/10/23 1115 Chief Complaint: Abdominal pain Nausea and vomiting Narrative: 11/10: patient is a 38-year-old female who presents to the emergency department with complaints of nausea, vomiting, abdominal pain for the past 2 weeks and worsening. Patient states at that time she had been in the hospital with similar symptoms and capped for 23 hour observation and discharged on a Librium taper. Significant other states as soon as patient got home she was trying to reduce her drinking and for the past 2 weeks has only consumed half a pint of vodka daily when her normal is 1 pint daily. Significant other states they had called a few rehab facilities and could not get her placed before the end of the year. Patient reports a small amount of coffee-ground emesis. Review of Systems Review of Systems: All systems reviewed & are unremarkable except as noted in HPI and below Gastrointestinal: Gastrointestinal: Reports as per HPI, Reports abdominal pain ( Generalized but worse to the epigastrium and left upper quadrant), Reports nausea and Reports vomiting ( small amount of coffee-ground emesis) Comments: patient reports she has not been able to keep any food or fluid down for the past several days Psychiatric: Psychiatric: Reports anxiety and Reports depression Comments: patient reports this time here is very hard on her as her mom this month and this month is also her mom's birthday. [facility] Past Medical History Medical History Alcohol withdrawal Chronic bronchitis Mitral valve prolapse Seizure off meds 5-6yrs SVT (supraventricular tachycardia) Surgical History Surgical History No history of previous surgery Family History Family History Mother Lung cancer Father Seizure Social History Social History Social History: She lives with her boyfriend and a friend. She smokes a pack a day for the past 27 years. Alcohol use as mentioned above. She smokes marijuana but denies drug use or history of IV drug use. She is full code. She nominates her sister to be the individual who would make medical decisions for her if she is unable. Smoking packs per day: 1 Smoking cigarettes per day: 20.0 Years smoked: 27 Smoking pack-years: 27.00 Smoking status: Current every day smoker Alcohol intake: current Drinks per week: 7 Substance use: current Substance use type: marijuana Other substance usage details: Drinks 1 pint of vodka a day. Last use: last drink 4pm 11/09 - no marijuana for a few days Do You Feel Safe in your Home?: Yes Lack of Transportation: No Lack of Food: Never True Current Housing: I Have Housing Concerned About Future Housing: No Difficulty Paying Gas/Electric Bills: No Difficulty Paying for Meds: No Currently Unemployed: Decline to Answer Education: High School Diploma/GED Difficulty w/ Childcare or Family Care: No Spiritual care concerns: No Meds Home Medications and Allergies Home Medications Medication Instructions Recorded Confirmed Type folic acid 1 mg tablet 1 mg PO DAILY #30 tabs 10/11/23 11/10/23 Rx multivitamin with folic acid 400 1 tablet PO QAM #30 tabs 10/11/23 11/10/23 Rx mcg tablet (Thera) pantoprazole 40 mg tablet,delayed 40 mg PO HS #30 tabs 10/11/23 11/10/23 Rx release thiamine HCl (vitamin B1) 100 mg 100 mg PO DAILY #30 tabs 10/11/23 11/10/23 Rx tablet Allergies Allergy/AdvReac Type Severity Reaction Status Date / Time caffeine Allergy Mild Unknown Verified 11/10/23 03:09 tramadol Allergy Unknown seizures Verified 11/10/23 03:09 Vital Signs Vital Signs - 24 hr 11/09/23 20:12 11/10/23 03:08 11/10/23 05:52 Temperature 97.1
[2023-11-10] MEDS: ONDANSETRON INJ 4 MG/2 ML VIAL IV PUSH ×2 (17:45→21:33)
[2023-11-10 18:35] LABS: Glucose Point of Care 77 mg/dl (65-105)
[2023-11-10] MEDS: KCL 20 MEQ/D5/0.9% SOD CHL 1,000 ML 125 ML IV CONT (19:27)
[2023-11-10 23:55] LABS: Glucose Point of Care 82 mg/dl (65-105)
[2023-11-11] VITALS (9 sets, daily range): BP systolic 100–110; BP diastolic 70–79; PULSE 73–97; RESP 16–24; TEMP 36.1–36.6; O2SAT 100
[2023-11-11] MEDS: KCL 20 MEQ/D5/0.9% SOD CHL 1,000 ML 125 ML IV CONT ×3 (04:04→21:02)
[2023-11-11] MEDS: MORPHINE SULFATE (*CRX) 2 MG/ML INJ IV PUSH ×5 (04:05→21:01)
[2023-11-11] MEDS: ONDANSETRON INJ 4 MG/2 ML VIAL IV PUSH ×5 (04:05→21:01)
[2023-11-11] MEDS: chlordiazePOXIDE (*CRX) 25 MG CAPSULE PO ×3 (05:36→21:01)
[2023-11-11 08:02] LABS: Glucose Point of Care 92 mg/dl (65-105)
[2023-11-11] MEDS: PANTOPRAZOLE SODIUM IV 40 MG VIAL IV PUSH (08:22)
[2023-11-11 08:36] LABS: Basophils Percent Auto 0.6 % (0.2-1.2); Eosinophils Absolute Auto 0.2 K/mm3 (0-0.3); Eosinophils Percent Auto 3.2 % (0-4.4); Hematocrit 38.4 % (37.0-47.0); Hemoglobin 13.1 g/dL (12.0-15.0); Immature Granulocyte Absolute 0.01 K/mm3 (0.00-0.031); Immature Granulocyte Percent A 0.2 % (0-0.5); Immature Platelet Fraction Pct 6.7 % (0.9-11.2); Lymphocytes Absolute Auto 1.32 K/mm3 (0.9-3.2); Lymphocytes Percent Auto 28.4 % (18.3-44.2); Mean Corpuscular HGB Conc 34.1 g/dl (32-36); Mean Corpuscular Hemoglobin 33.6 pg (26-34); Mean Corpuscular Volume 98.5 fl (80-100); Mean Platelet Volume 10.4 fl (7.4-10.4); Monocytes Absolute Auto 0.4 K/mm3 (0.1-0.6); Neutrophils Absolute Auto 2.7 K/mm3 (1.3-6.7); Neutrophils Percent Auto 58.6 % (45.5-73.1); Platelet Count Result 101 k/mm3 (150-375); Red Cell Distribution Width 12.7 % (11.5-14.5); White Blood Count 4.7 K/mm3 (4.5-10.0)
[2023-11-11 08:56] LABS: Alanine Aminotransferase 157 U/L (6-35); Albumin Level 3.3 g/dL (3.5-5.1); Alkaline Phosphatase 74 U/L (38-126); Anion Gap 6 mmol/L (8-16); Aspartate Amino Transferase 292 U/L (14-36); Bilirubin,Total 1.4 mg/dL (0.2-1.3); Blood Urea Nitrogen 13 mg/dL (7-17); Calcium 8.3 mg/dL (8.4-10.2); Carbon Dioxide 28 mmol/L (22-30); Chloride 103 mmol/L (98-107); Estimated CRCL calculation 148 ml/min; Estimated Glomerular Filt Rate > 60; Glucose 83 mg/dL (65-110); Potassium 3.9 mmol/L (3.4-5.0); Sodium 137 mmol/L (137-145)
--- NOTE | 2023-11-11 09:20 | PM.IMPN ---
Progress Note: A&P Assessment and Plan (1) Acute pancreatitis: Code(s): K85.90 - Acute pancreatitis without necrosis or infection, unspecified Status: Acute Assessment and Plan: 11/10 lipase 5448 upon presentation to the emergency department, this morning and grounding down to 2490. -Will advance diet to clear liquids -p.r.n. pain medication -p.r.n. antiemetics - D5 1/2 normal saline with 20 of KCl at 125 mL/hour - Protonix 40 mg IV daily -monitor lab work (2) Alcohol withdrawal: Code(s): F10.939 - Alcohol use, unspecified with withdrawal, unspecified Status: Acute Assessment and Plan: CIWA precautions -p.r.n. Ativan - scheduled Librium -monitor telemetry -monitor clinical response (3) Nausea & vomiting: Code(s): R11.2 - Nausea with vomiting, unspecified Status: Acute Assessment and Plan: -p.r.n. antiemetics -continue IV fluids (4) Tobacco abuse: Code(s): Z72.0 - Tobacco use Status: Acute Assessment and Plan: encouraged tobacco cessation -offer nicotine patch (5) Dehydration: Code(s): E86.0 - Dehydration Status: Acute Assessment and Plan: -patient received 2 L of normal saline in the emergency department - D5 normal saline with 20 of KCl at 125 mL/hour -monitor vital signs - monitor lab work -monitor clinical response (6) Acute cystitis: Code(s): N30.00 - Acute cystitis without hematuria Status: Acute Assessment and Plan: -await urine culture -await blood cultures -Rocephin 1 g IV Q 24 hours Time Spent With Patient Time with patient: 15 - 25 minutes Subjective Date/time seen: 11/11/23 09:20 Interval history: 11/10: ? patient is a 38-year-old female who presents to the emergency department with complaints of nausea, vomiting, abdominal pain for the past 2 weeks and worsening.? Patient states at that time she had been in the hospital with similar symptoms and capped for 23 hour observation and discharged on a Librium taper.? Significant other states as soon as patient got home she was trying to reduce her drinking and for the past 2 weeks has only consumed half a pint of vodka daily when her normal is 1 pint daily.? Significant other states they had called a few rehab facilities and could not get her placed before the end of the year.? Patient reports a small amount of coffee-ground emesis. 11/11: Lipase remains elevated and patient continues to have abdominal pain. No further nausea or vomiting at this time. States pain has improved since yesterday. Will plan to start clear liquid diet. CIWAs remain low and stable. Pt states she is feeling better with the librium. States she no longer even wants a drink. States she knows what it does to her body and she is ready to quite. Will recheck labs in the morning and if improving and having no nausea or vomiting will plan to advance her diet. Review of Systems Review of Systems: All systems reviewed & are unremarkable except as noted in HPI and below Exam Narrative: Pt a/ox4 and appears in no distress. Sitting up in bed visiting with her significant other and appears in no distress. Const: General: comfortable and no acute distress HENMT: Face/Nose/Sinus: Normal nares present Mouth: Yes moist mucous membranes Eyes: General: appearance normal, both eyes and all related structures Sclera: sclerae normal Pupils: Equal, round and reactive pupils present EOM: EOMs intact bilaterally Neck: Neck: supple and no JVD Resp: Effort & Inspection: normal respiratory effort Auscultation: clear to auscultation bilaterally Cardio: Rate: regular rate Rhythm: regular rhythm Other: No murmur, gallop or rub noted GI: Other: Abdomen soft, tender to LUQ and epigastrium to palpation, but much improved over yesterday. Skin: General skin exam: normal color and no rashes or lesions noted Neuro: Speech: normal speech Motor exam (
[2023-11-11 10:27] LABS: Lipase 2490 U/L (23-300)
[2023-11-11] MEDS: THIAMINE HCL 200 MG/2 ML VIAL 100 MG IV PUSH (11:18)
[2023-11-11 11:58] LABS: Glucose Point of Care 96 mg/dl (65-105)
[2023-11-11] MEDS: MAG HYDROX/AL HYDROX/SIMETH 30 ML UDC PO ×2 (16:56→23:36)
[2023-11-12] VITALS (8 sets, daily range): BP systolic 92–112; BP diastolic 41–74; PULSE 69–96; RESP 14–16; TEMP 36.1–36.6; O2SAT 100
[2023-11-12 00:56] LABS: Glucose Point of Care 111 mg/dl (65-105)
[2023-11-12] MEDS: ONDANSETRON INJ 4 MG/2 ML VIAL IV PUSH ×4 (01:06→15:40)
[2023-11-12] MEDS: MORPHINE SULFATE (*CRX) 2 MG/ML INJ IV PUSH ×6 (01:07→23:51)
[2023-11-12] MEDS: KCL 20 MEQ/D5/0.9% SOD CHL 1,000 ML 125 ML IV CONT ×3 (05:13→23:50)
[2023-11-12] MEDS: MAG HYDROX/AL HYDROX/SIMETH 30 ML UDC PO ×2 (05:14→14:55)
[2023-11-12] MEDS: chlordiazePOXIDE (*CRX) 25 MG CAPSULE PO ×3 (05:14→20:25)
[2023-11-12 09:05] LABS: Eosinophils Absolute Auto 0.1 K/mm3 (0-0.3); Eosinophils Percent Auto 3.1 % (0-4.4); Hematocrit 37.9 % (37.0-47.0); Hemoglobin 12.3 g/dL (12.0-15.0); Immature Granulocyte Absolute 0.01 K/mm3 (0.00-0.031); Immature Granulocyte Percent A 0.2 % (0-0.5); Immature Platelet Fraction Pct 5.5 % (0.9-11.2); Lymphocytes Absolute Auto 1.43 K/mm3 (0.9-3.2); Lymphocytes Percent Auto 34.5 % (18.3-44.2); Mean Corpuscular HGB Conc 32.5 g/dl (32-36); Mean Corpuscular Hemoglobin 32.9 pg (26-34); Mean Corpuscular Volume 101.3 fl (80-100); Mean Platelet Volume 10.2 fl (7.4-10.4); Monocytes Absolute Auto 0.5 K/mm3 (0.1-0.6); Monocytes Percent Auto 11.1 % (2.6-8.5); Neutrophils Absolute Auto 2.1 K/mm3 (1.3-6.7); Neutrophils Percent Auto 50.1 % (45.5-73.1); Platelet Count Result 102 k/mm3 (150-375); Red Blood Count 3.74 M/mm3 (4.2-5.4); Red Cell Distribution Width 12.9 % (11.5-14.5); White Blood Count 4.2 K/mm3 (4.5-10.0)
[2023-11-12 09:21] LABS: Alanine Aminotransferase 127 U/L (6-35); Albumin Level 2.9 g/dL (3.5-5.1); Alkaline Phosphatase 74 U/L (38-126); Anion Gap 7 mmol/L (8-16); Aspartate Amino Transferase 251 U/L (14-36); Bilirubin,Total 0.8 mg/dL (0.2-1.3); Blood Urea Nitrogen 4 mg/dL (7-17); Calcium 8.2 mg/dL (8.4-10.2); Carbon Dioxide 22 mmol/L (22-30); Chloride 107 mmol/L (98-107); Estimated CRCL calculation 148 ml/min; Estimated Glomerular Filt Rate > 60; Glucose 104 mg/dL (65-110); Lipase 1964 U/L (23-300); Potassium 3.5 mmol/L (3.4-5.0); Sodium 136 mmol/L (137-145)
[2023-11-12] MEDS: PANTOPRAZOLE SODIUM IV 40 MG VIAL IV PUSH (09:23)
[2023-11-12] MEDS: THIAMINE HCL 200 MG/2 ML VIAL 100 MG IV PUSH (09:23)
--- NOTE | 2023-11-12 15:28 | PM.IMPN ---
Progress Note: A&P Assessment and Plan (1) Acute pancreatitis: Code(s): K85.90 - Acute pancreatitis without necrosis or infection, unspecified Status: Acute Assessment and Plan: Secondary to alcohol abuse -lipase is trending down and patient is tolerating clear liquids -continue p.r.n. pain medications and IV fluids that contain potassium for now -Protonix and Mylanta ordered -vitals stable (2) Alcohol withdrawal: Code(s): F10.939 - Alcohol use, unspecified with withdrawal, unspecified Status: Acute Assessment and Plan: CIWA precautions -patient is on scheduled Librium which will be decreased to every 12 hours -no tremors or hallucinations (3) Nausea & vomiting: Code(s): R11.2 - Nausea with vomiting, unspecified Status: Acute Assessment and Plan: -p.r.n. antiemetics -continue IV fluids (4) Tobacco abuse: Code(s): Z72.0 - Tobacco use Status: Acute Assessment and Plan: encouraged tobacco cessation (5) Dehydration: Code(s): E86.0 - Dehydration Status: Acute Assessment and Plan: Resolved (6) Acute cystitis: Code(s): N30.00 - Acute cystitis without hematuria Status: Acute Assessment and Plan: Urine culture growing E coli -continue Rocephin 1 g IV Q 24 hours (7) Esophagitis: Code(s): K20.90 - Esophagitis, unspecified without bleeding Status: Acute Assessment and Plan: Continue Protonix -likely due to alcohol abuse -follow-up with GI Time Spent With Patient Time with patient: 25 - 35 minutes Subjective Date/time seen: 11/12/23 15:28 Interval history: Pt is a 38-year-old female here for pancreatitis and UTI. Patient states that she continues to have epigastric pain that is improving but still constant. She has not had any nausea or vomiting and is doing clear liquids without issue. She has not had a bowel movement since being here. She denies hallucinations, shakiness or fevers. Patient states her last drink was Wednesday. She has been in contact with chest not and is wanting to get help with rehab. She states she does not need any additional resources at this time Review of Systems Review of Systems: All systems reviewed & are unremarkable except as noted in HPI and below Exam Narrative: General: Well developed well nourished patient in [facility]: normocephalic Neck: supple Neuro: Alert and oriented x4. No tremors noted on exam CV:RRR Resp:CTA Abd: Soft, non distended. Abdominal pain to the upper quadrants Extremities: No swelling, erythema, or pain to palpation. Objective Data Vital Signs Vital Signs: Vital Signs - 24 hr 11/11/23 16:00 11/11/23 16:00 11/11/23 20:25 Temperature 98 F 97.0 F L Pulse Rate 75 73 75 Respiratory Rate 16 16 Blood Pressure 110/79 102/72 Pulse Oximetry 100 100 Oxygen Delivery 11/11/23 20:00 11/11/23 20:00 11/12/23 00:00 Temperature Pulse Rate 86 71 Respiratory Rate Blood Pressure Pulse Oximetry Oxygen Delivery Room Air 11/12/23 00:00 11/12/23 04:00 11/12/23 08:00 Temperature 97.6 F 97.6 F Pulse Rate 72 69 96 Respiratory Rate 16 14 Blood Pressure 94/41 L 106/73 Pulse Oximetry 100 100 Oxygen Delivery 11/12/23 08:00 Temperature Pulse Rate 89 Respiratory Rate Blood Pressure Pulse Oximetry Oxygen Delivery Intake/Output Intake/Output: Intake & Output 11/09/23 11/10/23 11/11/23 11/12/23 23:59 23:59 23:59 23:59 Intake Total 3150 3170 2650 Balance 3150 3170 2650 Meds/Results Medications: Active Medications Generic Name Dose Route Start Last Admin Trade Name Freq PRN Reason Stop Dose Admin Al Hydrox/Mg Hydrox/Simethicone 30 ml 11/11/23 14:29 11/12/23 14:55 Mag Hydrox/Al Hydrox/Simeth 30 Ml Udc PO 30 ml Q6H PRN Administration Indigestion Chlordiazepoxide HCl 25 mg 11/10/23 14:00 1
[2023-11-12 16:36] LABS: Glucose Point of Care 89 mg/dl (65-105)
--- NOTE | 2023-11-12 18:09 | PC.NURSE ---
This patient, Arin Roger, was received from [[id number] ] on 11/12/23 at 1808. Patient/family oriented to unit policies and routines
[2023-11-12 18:26] LABS: Glucose Point of Care 70 mg/dl (65-105)
[2023-11-12 23:49] LABS: Glucose Point of Care 86 mg/dl (65-105)
[2023-11-13] VITALS (8 sets, daily range): BP systolic 92–108; BP diastolic 52–72; PULSE 66–104; RESP 14–16; TEMP 36.4–36.6; O2SAT 98–100
[2023-11-13] MEDS: MORPHINE SULFATE (*CRX) 2 MG/ML INJ IV PUSH (04:09)
[2023-11-13 05:40] LABS: Glucose Point of Care 105 mg/dl (65-105)
--- NOTE | 2023-11-13 07:46 | PM.IMPN ---
Progress Note: A&P Assessment and Plan (1) Acute pancreatitis: Code(s): K85.90 - Acute pancreatitis without necrosis or infection, unspecified Status: Acute Assessment and Plan: 2/2 ETOH. - Advance to bland diet, tolerated clears fine. - If tolerating diet well, likely able to dc fluids and discharge in 24-48 hours. - We discussed at length the possible complications of pancreatitis if underlying cause is not curtailed. Specifically discussed pancreatic damage, chronic abdominal pain, recurrence of symptoms. The patient verbalized understanding. (2) Alcohol withdrawal: Code(s): F10.939 - Alcohol use, unspecified with withdrawal, unspecified Status: Acute Assessment and Plan: Stable symptoms. - Cont. CIWA precautions - Low dose librium to continue. - Accepted to inpatient rehab after discharge. - We discussed etoh abstinence at length at the bedside. (3) Nausea & vomiting: Code(s): R11.2 - Nausea with vomiting, unspecified Status: Acute Assessment and Plan: - No further n/v. (4) Tobacco abuse: Code(s): Z72.0 - Tobacco use Status: Acute Assessment and Plan: - Recommend cessation. (5) Acute cystitis: Code(s): N30.00 - Acute cystitis without hematuria Status: Acute Assessment and Plan: Uncomplicated. - DC ceftriaxone after 11/14 dose - should be dose 5. (6) Esophagitis: Code(s): K20.90 - Esophagitis, unspecified without bleeding Status: Acute Assessment and Plan: Continue Protonix -likely due to alcohol abuse -follow-up with GI (7) Abnormal liver enzymes: Code(s): R74.8 - Abnormal levels of other serum enzymes Status: Acute Assessment and Plan: Chronic on chart review. Discussed etoh cessation, o/p f/u. Time Spent With Patient Time with patient: 25 - 35 minutes Subjective Date/time seen: 11/13/23 07:46 Interval history: 38 year old patient with hx etoh abuse s/p rehab remotely presented with elevated lipase and symptoms c/w pancreatitis. She states epigastric region pain is present but improved. She is tolerating clear liquids well. She states she feels a little tremulous but is better. She states she has already been accepted to rehab, inpatient. Review of Systems Review of Systems: All systems reviewed & are unremarkable except as noted in HPI and below Exam Narrative: GENERAL APPEARANCE: Appears to be in no acute distress. HEAD: normocephalic atraumatic EYES: PERRL, EOMI. Vision grossly intact. ENT: Hearing grossly intact, no nasal discharge NECK: Neck supple, trachea midline. CARDIAC: Normal S1/S2. Rhythm is regular. No murmurs, rubs, or gallops. No cyanosis or pallor. Extremities are warm and well perfused. LUNGS: Clear to auscultation without rales, rhonchi, wheezing or diminished breath sounds. Respirations even and unlabored. ABDOMEN: BS positive x 4 quadrants. Soft, nondistended, nontender. No guarding or rebound. MSK: No joint tenderness/swelling, fair strength in all extremities. PERIPHERAL VASCULAR: Peripheral pulses palpable. Normal perfusion, cap refill <2 seconds. No edema. NEURO: Follows commands. No focal deficits. Slight tremor with arms outstretched. SKIN: [place] without lesions or eruptions. PSYCH: Stable, no paranoia or delusional thinking. Objective Data Vital Signs Vital Signs: Vital Signs - 24 hr 11/12/23 08:00 11/12/23 08:00 11/12/23 16:00 Temperature 97.6 F 97.5 F L Pulse Rate 96 89 76 Respiratory Rate 14 16 Blood Pressure 106/73 103/68 Pulse Oximetry 100 100 Oxygen Delivery 11/12/23 18:17 11/12/23 12:00 11/12/23 16:00 Temperature 96.9 F L Pulse Rate 77 69 69 Respiratory Rate 16 Blood Pressure 112/74 Pulse Oximetry 100 Oxygen Delivery 11/12/23 20:00 11/12/23 20:00 11/12/23 21:37 Temperature 97.8 F Pulse Rate 72 Respiratory Rate 14 Blood Pressure 112/74 9
[2023-11-13] MEDS: KCL 20 MEQ/D5/0.9% SOD CHL 1,000 ML 125 ML IV CONT ×2 (08:11→16:35)
[2023-11-13] MEDS: ONDANSETRON INJ 4 MG/2 ML VIAL IV PUSH (08:14)
[2023-11-13] MEDS: PANTOPRAZOLE SODIUM IV 40 MG VIAL IV PUSH (08:14)
[2023-11-13] MEDS: THIAMINE HCL 200 MG/2 ML VIAL 100 MG IV PUSH (08:14)
[2023-11-13] MEDS: chlordiazePOXIDE (*CRX) 25 MG CAPSULE PO ×2 (08:14→20:42)
[2023-11-13] MEDS: MAG HYDROX/AL HYDROX/SIMETH 30 ML UDC PO ×2 (08:19→16:37)
[2023-11-13 08:30] LABS: Glucose Point of Care 98 mg/dl (65-105)
[2023-11-13 08:55] LABS: Basophils Percent Auto 0.6 % (0.2-1.2); Eosinophils Absolute Auto 0.1 K/mm3 (0-0.3); Eosinophils Percent Auto 2.1 % (0-4.4); Hematocrit 39.5 % (37.0-47.0); Hemoglobin 12.8 g/dL (12.0-15.0); Immature Granulocyte Absolute 0.02 K/mm3 (0.00-0.031); Immature Granulocyte Percent A 0.4 % (0-0.5); Immature Platelet Fraction Pct 4.7 % (0.9-11.2); Lymphocytes Absolute Auto 1.55 K/mm3 (0.9-3.2); Lymphocytes Percent Auto 32.8 % (18.3-44.2); Mean Corpuscular HGB Conc 32.4 g/dl (32-36); Mean Corpuscular Hemoglobin 32.6 pg (26-34); Mean Corpuscular Volume 100.5 fl (80-100); Mean Platelet Volume 10.3 fl (7.4-10.4); Monocytes Absolute Auto 0.5 K/mm3 (0.1-0.6); Monocytes Percent Auto 9.5 % (2.6-8.5); Neutrophils Absolute Auto 2.6 K/mm3 (1.3-6.7); Neutrophils Percent Auto 54.6 % (45.5-73.1); Platelet Count Result 140 k/mm3 (150-375); Red Blood Count 3.93 M/mm3 (4.2-5.4); Red Cell Distribution Width 12.7 % (11.5-14.5); White Blood Count 4.7 K/mm3 (4.5-10.0)
[2023-11-13 09:04] LABS: Alanine Aminotransferase 157 U/L (6-35); Albumin Level 3.1 g/dL (3.5-5.1); Alkaline Phosphatase 82 U/L (38-126); Anion Gap 4 mmol/L (8-16); Aspartate Amino Transferase 239 U/L (14-36); Bilirubin,Total 0.8 mg/dL (0.2-1.3); Blood Urea Nitrogen 2 mg/dL (7-17); Calcium 8.6 mg/dL (8.4-10.2); Carbon Dioxide 24 mmol/L (22-30); Chloride 107 mmol/L (98-107); Estimated CRCL calculation 148 ml/min; Estimated Glomerular Filt Rate > 60; Glucose 86 mg/dL (65-110); Lipase 1095 U/L (23-300); Sodium 135 mmol/L (137-145)
[2023-11-13 10:09] LABS: Folic Acid 17.8 ng/mL (2.76->20)
[2023-11-13 11:59] LABS: Glucose Point of Care 73 mg/dl (65-105)
[2023-11-13 17:03] LABS: Glucose Point of Care 93 mg/dl (65-105)
[2023-11-13 23:59] LABS: Glucose Point of Care 104 mg/dl (65-105)
[2023-11-14] VITALS: BP 97/62; PULSE 66; PULSE 99; RESP 15; TEMP 36.6; O2SAT 100
[2023-11-14] MEDS: KCL 20 MEQ/D5/0.9% SOD CHL 1,000 ML 125 ML IV CONT ×2 (00:02→08:43)
[2023-11-14 04:00] VITALS: PULSE 67
[2023-11-14 05:33] LABS: Glucose Point of Care 113 mg/dl (65-105)
[2023-11-14] MEDS: MAG HYDROX/AL HYDROX/SIMETH 30 ML UDC PO (05:40)
[2023-11-14 06:09] LABS: Basophils Absolute Auto 0.1 K/mm3 (0.0-0.1); Basophils Percent Auto 1.1 % (0.2-1.2); Eosinophils Absolute Auto 0.1 K/mm3 (0-0.3); Eosinophils Percent Auto 2.1 % (0-4.4); Hematocrit 38.4 % (37.0-47.0); Immature Granulocyte Absolute 0.01 K/mm3 (0.00-0.031); Immature Granulocyte Percent A 0.2 % (0-0.5); Lymphocytes Absolute Auto 1.77 K/mm3 (0.9-3.2); Lymphocytes Percent Auto 37.2 % (18.3-44.2); Mean Corpuscular HGB Conc 33.9 g/dl (32-36); Mean Corpuscular Hemoglobin 33.5 pg (26-34); Mean Platelet Volume 10.4 fl (7.4-10.4); Monocytes Absolute Auto 0.6 K/mm3 (0.1-0.6); Neutrophils Absolute Auto 2.2 K/mm3 (1.3-6.7); Neutrophils Percent Auto 46.4 % (45.5-73.1); Platelet Count Result 141 k/mm3 (150-375); Red Blood Count 3.88 M/mm3 (4.2-5.4); Red Cell Distribution Width 12.5 % (11.5-14.5); White Blood Count 4.8 K/mm3 (4.5-10.0)
[2023-11-14 08:00] VITALS: PULSE 68
[2023-11-14 08:03] LABS: Alanine Aminotransferase 147 U/L (6-35); Albumin Level 3.2 g/dL (3.5-5.1); Alkaline Phosphatase 85 U/L (38-126); Anion Gap 4 mmol/L (8-16); Aspartate Amino Transferase 206 U/L (14-36); Bilirubin,Total 0.6 mg/dL (0.2-1.3); Calcium 8.9 mg/dL (8.4-10.2); Carbon Dioxide 24 mmol/L (22-30); Chloride 109 mmol/L (98-107); Estimated CRCL calculation 148 ml/min; Estimated Glomerular Filt Rate > 60; Glucose 92 mg/dL (65-110); Lipase 1390 U/L (23-300); Potassium 4.4 mmol/L (3.4-5.0); Sodium 137 mmol/L (137-145)
[2023-11-14 08:04] LABS: Blood Urea Nitrogen < 2 mg/dL (7-17)
[2023-11-14] MEDS: THIAMINE HCL 200 MG/2 ML VIAL 100 MG IV PUSH (08:44)
[2023-11-14] MEDS: chlordiazePOXIDE (*CRX) 25 MG CAPSULE PO (08:44)
[2023-11-14] MEDS: NICOTINE (*PBKC) 21 MG PATCH 1 PATCH TRANSDERM (08:44)
[2023-11-14] MEDS: PANTOPRAZOLE SODIUM IV 40 MG VIAL IV PUSH (08:44)
--- NOTE | 2023-11-14 11:40 | PM.DS ---
DS: Admitting Diagnosis Discharge Date 11/14/2023 Admitting Diagnosis Acute pancreatitis, alcohol withdrawal, nausea vomiting, tobacco abuse, dehydration, acute cystitis DS: Discharge Diagnosis Discharge Diagnosis (1) Acute pancreatitis: Code(s): K85.90 - Acute pancreatitis without necrosis or infection, unspecified Status: Acute (2) Alcohol withdrawal: Code(s): F10.939 - Alcohol use, unspecified with withdrawal, unspecified Status: Acute (3) Nausea & vomiting: Code(s): R11.2 - Nausea with vomiting, unspecified Status: Acute (4) Tobacco abuse: Code(s): Z72.0 - Tobacco use Status: Acute (5) Acute cystitis: Code(s): N30.00 - Acute cystitis without hematuria Status: Acute (6) Esophagitis: Code(s): K20.90 - Esophagitis, unspecified without bleeding Status: Acute (7) Abnormal liver enzymes: Code(s): R74.8 - Abnormal levels of other serum enzymes Status: Acute DS: Summary Hospital Course Reason for hospitalization: Acute alcoholic pancreatitis Hospital Course: This is a 38-year-old female patient who was admitted to the hospital for acute pancreatitis due to alcohol and alcohol withdrawal. Patient was experiencing abdominal pain nausea and vomiting. She received continuous IV fluids. She received antibiotics for UTI that was pansensitive except Bactrim and she received 3 days of treatment with IV Rocephin. And she was sent home on Keflex 3 times daily. Lipase had been down trending to 1000 yesterday where she was switched over to regular diet. Minor bump in lipase to 1300 today but patient reports pain is relieved nausea is relieved she is tolerating well and wants to discharge. Patient was advised that her lipase level was still high and that she would likely go back in to pancreatitis if she did not follow her diet and started drinking again. Patient stated she was not going to start drinking again. Tobacco cessation discussed and prescription for all medications sent to preferred pharmacy. Time spent discussing smoking cessation with patient: 3 to 10 minutes Status at Discharge Cognitive/behavioral status at discharge: Awake alert oriented Functional status at discharge: independent ambulation Overall status at discharge: patient is progressing back to baseline Time Spent with Patient Time attestation: Total time spent providing and/or coordinating discharge services: 35 minutes Time spent: Greater than 30 minutes Exam Narrative: GENERAL APPEARANCE: Appears to be in no acute distress. HEAD: normocephalic atraumatic EYES: PERRL, EOMI. Vision grossly intact. ENT: Hearing grossly intact, no nasal discharge NECK: Neck supple, trachea midline. CARDIAC: Normal S1/S2. Rhythm is regular. No murmurs, rubs, or gallops. No cyanosis or pallor. Extremities are warm and well perfused. LUNGS: Clear to auscultation without rales, rhonchi, wheezing or diminished breath sounds. Respirations even and unlabored. ABDOMEN: BS positive x 4 quadrants. Soft, nondistended, nontender. No guarding or rebound. MSK: No joint tenderness/swelling, fair strength in all extremities. PERIPHERAL VASCULAR: Peripheral pulses palpable. Normal perfusion, cap refill <2 seconds. No edema. NEURO: Follows commands. No focal deficits. Slight tremor with arms outstretched. SKIN: [place] without lesions or eruptions. PSYCH: Stable, no paranoia or delusional thinking. DS: Data Data Completed and Pending Completed studies during hospitalization: Abdomen pelvis CT Labs on day of discharge: Labs from last 24 hours 11/14/23 11/14/23 11/13/23 05:27 05:22 23:57 WBC 4.8 RBC 3.88 L Hgb 13.0 Hct 38.4 MCV 99.0 MCH 33.5 MCHC 33.9 RDW 12.5 Plt Count 141 L MPV 10.4 Immature Gran % (Auto) 0.2 Neut % (Auto) 46.4 Lymph % (Auto) 37.2 [place] % (Auto) 13.0 H Eos % (Auto) 2.1 Baso % (Auto) 1.1 Lymph # (Auto) 1.77 [place] # (Auto)
--- NOTE | 2023-11-17 08:55 | PC.NURSE ---
Blood cultures are negative.
== END 2023-11-14 12:05 | disposition home or self-care (01) | DRG 282 ==
LOC: ANHED 11-10 06:35 → ANHIMU 11-10 08:16 → ANH2MED 11-14 09:07 → ANHIMU 11-17 15:18
PROVIDERS: Nurse Practitioner Family; Physician Assistant; Admitting Provider General Practice; Emergency Provider Emergency Medicine; PCP Internal Medicine Gastroenterology; Visit Provider Nurse Practitioner
DX: K85.20 Alcohol induced acute pancreatitis without necrosis or infection (principal); N30.00 Acute cystitis without hematuria; B96.20 Unspecified Escherichia coli [E. coli] as the cause of diseases classified elsewhere; E86.0 Dehydration; F10.139 Alcohol abuse with withdrawal, unspecified; F17.210 Nicotine dependence, cigarettes, uncomplicated; J42 Unspecified chronic bronchitis; K20.90 Esophagitis, unspecified without bleeding; R74.8 Abnormal levels of other serum enzymes; Z28.21 Immunization not carried out because of patient refusal
CPT/HCPCS: 36415; 74177; 80053; 80307; 81001; 81025; 82607; 82746; 82948; 83690; 85025; 85055; 87040; 87077; 87086; 87186; 96365; 96366; 96368; 96374; 96375; 99285; A9270; C9113; G0378; G0379; J0696; J0780; J2270; J2405; J3411; J3480; J7030; Q9967

== ENCOUNTER 2023-12-01 15:48 | Inpatient (IN) | payer OTHER, SELFPAY ==
--- NOTE | ~2023-12-01 | XR_ITS ---
EXAMINATION: XR chest 1V portable DATE: 12/01/2023 21:02 INDICATION: Epigastric abdominal pain. TECHNIQUE: A single frontal view of the chest was obtained. COMPARISON: Chest 2 views 05/28/2011, CT abdomen and pelvis 11/10/2023 FINDINGS: There is mild scarring at the lung apices. No pleural effusion or pneumothorax. The heart s ize is normal. IMPRESSION: 1. Mild scarring at the lung apices. Reviewed, dictated and finalized at location E. UNTS RECEIVABLE SUPERVISOR
--- NOTE | ~2023-12-01 | US_ITS ---
EXAMINATION: US abdomen limited DATE: 12/02/2023 12:19 INDICATION: Acute pancreatitis. TECHNIQUE: Multiple grayscale and Doppler ultrasound images of the abdomen were obtained. COMPARISON: CT abdomen pelvis 12/01/23 FINDINGS: The visualized portions of the head and body of pancreas are normal. There is diffuse hepat ic steatosis. There is normal flow in main portal vein. The gallbladder is normal in size. No gallsto guevara or gallbladder wall thickening. There was no sonographic Dillon sign. The common duct is dilated to 8 mm. IMPRESSION: 1. Mildly dilated common duct. 2. Diffuse hepatic steatosis. Reviewed, dictated and finalized at location E. RNATIONAL PROJECT ENGINEER
--- NOTE | ~2023-12-01 | CT_ITS ---
EXAMINATION: CT abdomen pelvis w con DATE: 12/01/2023 21:43 INDICATION: Epigastric abdominal pain. Nausea and vomiting. TECHNIQUE: Computed tomography (CT) of the abdomen and pelvis was performed with 100 mL Omnipaque 350 intravenous contrast. Automated exposure control and iterative reconstruction technique were employe d. The dose-length product was 364.14 mGy-cm. COMPARISON: CT abdomen and pelvis 11/10/2023 FINDINGS: The visualized portions of the lung bases demonstrate mild atelectasis on the right. No ple ural effusion. The heart size is normal. No pericardial effusion. There is a small sliding hiatal her doni. There is diffuse hepatic steatosis. The gallbladder is distended, likely secondary to fasting. T here is fat stranding adjacent to the head of the pancreas, consistent with acute interstitial pancre atitis. The spleen and adrenal glands are normal. There is cortical thinning of the kidneys. There is a 7 mm cyst in right kidney. There are no dilated loops of bowel. The appendix is normal. There are no pathologically enlarged lymph nodes. There is no free intraperitoneal fluid. There is severe lumba r spondylosis. IMPRESSION: 1. Acute interstitial pancreatitis. 2. Diffuse hepatic steatosis. 3. Small sliding hiatal hernia. Reviewed, dictated and finalized at location E. ERT GROWER
--- NOTE | ~2023-12-01 | XR_ITS ---
EXAMINATION: XR chest 1V portable Exam Date/Time: 12/05/2023 16:10 EDGING MACHINE SETTER HISTORY: diminished breath sounds Comparison: 12/01/2023. RESULT: Lines, tubes, and devices: None. Lungs and pleura: Clear. Cardiomediastinal silhouette: Stable. Other: No acute osseous or upper abdominal finding. IMPRESSION: No acute cardiopulmonary process. Reviewed, dictated and finalized at location K. NG MACHINE SETTER
[2023-12-01 16:20] VITALS: BP 131/99; PULSE 126; RESP 20; TEMP 36.5; O2SAT 98
--- NOTE | 2023-12-01 20:08 | ECG_ITS ---
Measurements Intervals [place] Rate: 106 P: 70 ME: 145 QRS: 69 QRSD: 92 T: 53 QT: 362 QTc: 483 Interpretive Statements SINUS TACHYCARDIA BORDERLINE ST ABNORMALITY- ANTEROLATERAL LEADS BORDERLINE ECG COMPARED TO ECG 10/10/2023 00:44:28 NO SIGNIFICANT CHANGES Electronically Signed On 12-02-2023 6:23:04 TRANSPORTATION ASSISTANT by Rich Fung D.O.
--- NOTE | 2023-12-01 20:13 | ED.GENADULT ---
HPI - General Adult General Chief complaint: Unspecified Stated complaint: medical detox? Time Seen by Provider: 12/01/23 19:49 History of Present Illness HPI narrative: Patient is a 38-year-old female with a history of ethanol use disorder presenting with abdominal pain. Patient states that she was discharged from here 2-3 weeks ago on Librium. States that she does well while she has Librium but then when she runs out she usually ends up starting to drink again. States that she has been drinking for the last few days, last drink was earlier today. States that she has been hospitalized for pancreatitis multiple times and she again has severe abdominal burning pain and nausea and vomiting. States that she is supposed to start rehab in [place] but 1st she needs medical detox. Complains of anxiety and tremulousness. No chest pain or shortness of breath. No fevers, cough, sore throat, dysuria. Related Data Allergies Allergy/AdvReac Type Severity Reaction Status Date / Time caffeine Allergy Mild Unknown Verified 11/10/23 03:09 tramadol Allergy Unknown seizures Verified 11/10/23 03:09 Review of Systems Review of Systems: All systems reviewed & are unremarkable except as noted in HPI and below PMFSH Past Medical History Medical History (Updated 12/05/23 @ 14:13 by Mar Douglas MD) Alcohol withdrawal Chronic bronchitis Mitral valve prolapse Seizure off meds 5-6yrs SVT (supraventricular tachycardia) Surgical History Surgical History No history of previous surgery Family History Family History Mother Lung cancer Father Seizure Social History Social History Social History: She lives with her boyfriend and a friend. She smokes a pack a day for the past 27 years. Alcohol use as mentioned above. She smokes marijuana but denies drug use or history of IV drug use. She is full code. She nominates her sister to be the individual who would make medical decisions for her if she is unable. Smoking packs per day: 1 Smoking cigarettes per day: 20.0 Years smoked: 27 Smoking pack-years: 27.00 Smoking status: Current every day smoker Alcohol intake: current Drinks per week: 7 Substance use: current Substance use type: marijuana Other substance usage details: tested + opiates, benzo, and marijuana Last use: last drink 4pm 11/09 - no marijuana for a few days Do You Feel Safe in your Home?: Yes Lack of Transportation: No Lack of Food: Never True Current Housing: I Have Housing Concerned About Future Housing: No Difficulty Paying Gas/Electric Bills: No Difficulty Paying for Meds: No Currently Unemployed: YES Education: High School Diploma/GED Difficulty w/ Childcare or Family Care: No Spiritual care concerns: Yes Exam Narrative: GENERAL: Tearful, anxious, cooperative. HEAD: Normocephalic, atraumatic. EYES: PERRLA and EOMI. ENT: grossly unremarkable NECK: Supple. CHEST: Clear to auscultation. No respiratory distress. HEART: tachycardic, regular rhythm ABDOMEN: Soft, diffusely tender especially in the epigastrium, no guarding or rebound EXTREMITIES: Normal range of motion. No edema. SKIN: Warm, dry, no rash. NEURO: No focal deficits. Alert and oriented x3. PSYCH: Normal mood and affect. Course Vital Signs Vital signs: Vital Signs Temperature 97.7 F 12/01/23 16:20 Pulse Rate 126 H 12/01/23 16:20 Respiratory Rate 20 12/01/23 16:20 Blood Pressure 131/99 H 12/01/23 16:20 Pulse Oximetry 98 12/01/23 16:20 Oxygen Delivery Room Air 12/01/23 16:20 Temperature 96.8 F L 12/05/23 06:00 Pulse Rate 98 12/05/23 12:00 Respiratory Rate 14 12/05/23 06:00 Blood Pressure 105/78 12/05/23 06:00 Pulse Oximetry 100 12/05/23 09:22 Oxygen Delivery Room Air 12/05/23 09:22
[2023-12-01 20:15] VITALS: BP 147/97; PULSE 131; RESP 18; O2SAT 100
[2023-12-01] MEDS: MORPHINE SULFATE (*CRX) 4 MG/ML INJ IV PUSH (20:32)
[2023-12-01] MEDS: ONDANSETRON INJ 4 MG/2 ML VIAL IV PUSH (20:32)
[2023-12-01] MEDS: SODIUM CHLORIDE 0.9% IV 1,000 ML 999 ML IV CONT (20:35)
[2023-12-01] MEDS: chlordiazePOXIDE (*CRX) 25 MG CAPSULE 50 MG PO (20:35)
[2023-12-01 20:36] LABS: Basophils Absolute Auto 0.1 K/mm3 (0.0-0.1); Basophils Percent Auto 0.8 % (0.2-1.2); Eosinophils Percent Auto 0.3 % (0-4.4); Hematocrit 46.2 % (37.0-47.0); Hemoglobin 15.3 g/dL (12.0-15.0); Immature Granulocyte Absolute 0.02 K/mm3 (0.00-0.031); Immature Granulocyte Percent A 0.3 % (0-0.5); Lymphocytes Absolute Auto 2.89 K/mm3 (0.9-3.2); Lymphocytes Percent Auto 37.8 % (18.3-44.2); Mean Corpuscular HGB Conc 33.1 g/dl (32-36); Mean Corpuscular Hemoglobin 32.5 pg (26-34); Mean Corpuscular Volume 98.1 fl (80-100); Mean Platelet Volume 9.4 fl (7.4-10.4); Monocytes Absolute Auto 0.4 K/mm3 (0.1-0.6); Monocytes Percent Auto 5.6 % (2.6-8.5); Neutrophils Absolute Auto 4.2 K/mm3 (1.3-6.7); Neutrophils Percent Auto 55.2 % (45.5-73.1); Platelet Count Result 281 k/mm3 (150-375); Red Blood Count 4.71 M/mm3 (4.2-5.4); Red Cell Distribution Width 13.2 % (11.5-14.5); White Blood Count 7.6 K/mm3 (4.5-10.0)
[2023-12-01 20:50] LABS: Alanine Aminotransferase 102 U/L (6-35); Albumin Level 5.2 g/dL (3.5-5.1); Alkaline Phosphatase 128 U/L (38-126); Anion Gap 22 mmol/L (8-16); Aspartate Amino Transferase 193 U/L (14-36); Bilirubin,Total 0.8 mg/dL (0.2-1.3); Blood Urea Nitrogen 12 mg/dL (7-17); Calcium 9.4 mg/dL (8.4-10.2); Carbon Dioxide 18 mmol/L (22-30); Chloride 101 mmol/L (98-107); Estimated CRCL calculation 90 ml/min; Estimated Glomerular Filt Rate > 60; Ethanol 280 mg/dL (<10); Glucose 85 mg/dL (65-110); Potassium 4.4 mmol/L (3.4-5.0); Sodium 141 mmol/L (137-145)
[2023-12-01 20:51] LABS: Lipase 1204 U/L (23-300)
[2023-12-01 20:52] LABS: Lactic Acid Reflex 4.5 mmol/L (0.7-2.0)
[2023-12-01 21:12] LABS: Appearance Urine Cloudy (Clear); Bacteria Urine None Seen /hpf; Bilirubin Urine Negative (Negative); Blood Urine 2+ (Negative); Color Urine Dark Yellow (Yellow); Glucose Urine UA Negative (Negative); Ketones Urine 3+ mg/dL (Negative); Leukocyte Esterase Ur Negative LEU/UL (Negative); Need Manual Microscopic Reviewed; Nitrate Urine Negative (Negative); Protein Urine 3+ mg/dL (Negative); Squamous Epithelial Cell Urine Few /hpf (Few)
[2023-12-01 21:17] LABS: Amphetamine Screen Urine Negative (Negative); Barbiturate Screen Urine Negative (Negative); Benzodiazepines Screen Urine Positive (Negative); Cannabinoid Screen Urine Positive (Negative); Cocaine Screen Urine Negative (Negative); Methadone Screen Urine Negative (Negative); Opiate Screen Urine Positive (Negative); Phencyclidine Screen Urine Negative (Negative)
[2023-12-01 21:18] LABS: Add Urine Microscopic? YES
[2023-12-01 21:31] LABS: Urine Pregnancy Test Negative
[2023-12-01 21:32] LABS: Pregnancy On Board Control Positive
[2023-12-01 21:45] VITALS: PULSE 128
[2023-12-01] MEDS: LORazepam INJ (*CRX) 2 MG/ML VIAL IV PUSH (22:28)
[2023-12-01 23:34] LABS: Reflex Lactic Acid Yes or No Add Lactic
[2023-12-01] MEDS: MELATONIN 5 MG TABLET PO (23:48)
[2023-12-01 23:49] VITALS: BP 110/97; PULSE 96; RESP 15; O2SAT 99
[2023-12-02] VITALS (14 sets, daily range): BP systolic 102–124; BP diastolic 61–87; PULSE 66–104; RESP 12–18; TEMP 36–36.8; O2SAT 97–100
[2023-12-02 00:39] LABS: Glucose Point of Care 87 mg/dl (65-105)
--- NOTE | 2023-12-02 00:45 | PC.NURSE ---
This patient, Arin Roger, was admitted to 3 Med Surg Room 316-02. Patient/family oriented to hospital policies and general routines including ID bracelet, bed and alarms, visiting hours, pain management, procedures, bathroom and other care routines, personal items, smoking policy, room service/diet, and visiting hours. Information on how to activate the Rapid Response Team has been discussed. Patient/Family are encouraged to report perceived risks to care and to ask questions if they do not understand what they are told or what they should do.
[2023-12-02] MEDS: MORPHINE SULFATE (*CRX) 4 MG/ML INJ IV PUSH ×4 (00:53→14:09)
[2023-12-02 02:20] LABS: Lactic Acid 1.8 mmol/L (0.7-2.0)
[2023-12-02] MEDS: LORazepam INJ (*CRX) 2 MG/ML VIAL IV PUSH ×4 (03:57→16:30)
[2023-12-02 05:55] LABS: Glucose Point of Care 91 mg/dl (65-105)
[2023-12-02] MEDS: ONDANSETRON INJ 4 MG/2 ML VIAL IV PUSH (06:54)
--- NOTE | 2023-12-02 10:11 | PM.IMHP ---
H&P: HPI History of Present Illness Date/Time: 12/02/23 10:11 Chief Complaint: requesting medical/alcohol detox Narrative: HPI provided by patient and spouse by the bedside Mrs. Pedro is a 38-year-old female with PMHx: Alcohol abuse, chronic bronchitis, mitral valve prolapse, history of seizures noncompliant with medication, SVT not currently taking any medication for rate control. Presented to the emergency with abdominal pain. Pt reports her pain as generalized, radiates to her back, reports her pain is often precipitated after eating.Pt admits hx of recent hospitalizations citing she was discharged this facility 2-3 weeks ago, was given Librium. Patient reports fever now comes while taking Librium states when she runs out she usually starts drinking again. Patient admits she has been drinking for the past few days her last drink was right before admission, she states she drinks 2pints of alcohol daily, she reports history seizures with alcohol withdrawal patient also admits history of multiple diagnosis of pancreatitis the past. Patient states that she is here for medical treatment and clearance so that she is able to go to rehabilitation center in [place]. Patient reports anxiety with mild tremors, she denies any chest pain shortness a breath, fever, chills, cough,or sore throat at this time. Review of Systems Review of Systems: All systems reviewed & are unremarkable except as noted in HPI and below PMFSH Past Medical History Medical History Alcohol withdrawal Chronic bronchitis Mitral valve prolapse Seizure off meds 5-6yrs SVT (supraventricular tachycardia) Surgical History Surgical History No history of previous surgery Family History Family History Mother Lung cancer Father Seizure Social History Social History Social History: She lives with her boyfriend and a friend. She smokes a pack a day for the past 27 years. Alcohol use as mentioned above. She smokes marijuana but denies drug use or history of IV drug use. She is full code. She nominates her sister to be the individual who would make medical decisions for her if she is unable. Smoking packs per day: 1 Smoking cigarettes per day: 20.0 Years smoked: 27 Smoking pack-years: 27.00 Smoking status: Current every day smoker Alcohol intake: current Drinks per week: 7 Substance use: current Substance use type: marijuana Other substance usage details: tested + opiates, benzo, and marijuana Last use: last drink 4pm 11/09 - no marijuana for a few days Do You Feel Safe in your Home?: Yes Lack of Transportation: No Lack of Food: Never True Current Housing: I Have Housing Concerned About Future Housing: No Difficulty Paying Gas/Electric Bills: No Difficulty Paying for Meds: No Currently Unemployed: YES Education: High School Diploma/GED Difficulty w/ Childcare or Family Care: No Spiritual care concerns: Yes Meds Home Medications and Allergies Home Medications Medication Instructions Recorded Confirmed Type chlordiazepoxide HCl 25 mg capsule 25 mg PO Q12HR #10 caps 11/14/23 12/02/23 Rx folic acid 1 mg tablet 1 mg PO DAILY #90 tabs 11/14/23 12/02/23 Rx multivitamin with folic acid 400 1 tablet PO QAM #90 tabs 11/14/23 12/02/23 Rx mcg tablet (Thera) nicotine 21 mg/24 hr daily 1 patch transdermal DAILY #90 ea 11/14/23 12/02/23 Rx transdermal patch (Nicoderm CQ) ondansetron 4 mg disintegrating 4 mg PO Q6H PRN nausea and 11/14/23 12/02/23 Rx tablet vomiting #30 tabs pantoprazole 40 mg tablet,delayed 40 mg PO HS #90 tabs 11/14/23 12/02/23 Rx release thiamine HCl (vitamin B1) 100 mg 100 mg PO DAILY #90 tabs 11/14/23 12/02/23 Rx tablet Allergies Allergy/AdvReac T
[2023-12-02 12:23] LABS: Glucose Point of Care 98 mg/dl (65-105)
[2023-12-02] MEDS: ONDANSETRON HCL ODT 4 MG TABLET PO (12:23)
[2023-12-02] MEDS: LACTATED RINGERS 1,000 ML 75 ML IV CONT (12:24)
[2023-12-02 12:33] LABS: Basophils Absolute Auto 0.1 K/mm3 (0.0-0.1); Basophils Percent Auto 0.8 % (0.2-1.2); Eosinophils Percent Auto 0.5 % (0-4.4); Hematocrit 38.5 % (37.0-47.0); Hemoglobin 12.9 g/dL (12.0-15.0); Immature Granulocyte Absolute 0.01 K/mm3 (0.00-0.031); Immature Granulocyte Percent A 0.2 % (0-0.5); Lymphocytes Absolute Auto 1.32 K/mm3 (0.9-3.2); Lymphocytes Percent Auto 21.4 % (18.3-44.2); Mean Corpuscular HGB Conc 33.5 g/dl (32-36); Mean Corpuscular Hemoglobin 32.9 pg (26-34); Mean Corpuscular Volume 98.2 fl (80-100); Mean Platelet Volume 9.4 fl (7.4-10.4); Monocytes Absolute Auto 0.5 K/mm3 (0.1-0.6); Monocytes Percent Auto 8.4 % (2.6-8.5); Neutrophils Absolute Auto 4.2 K/mm3 (1.3-6.7); Neutrophils Percent Auto 68.7 % (45.5-73.1); Platelet Count Result 185 k/mm3 (150-375); Red Blood Count 3.92 M/mm3 (4.2-5.4); Red Cell Distribution Width 13.1 % (11.5-14.5); White Blood Count 6.2 K/mm3 (4.5-10.0)
--- NOTE | 2023-12-02 13:33 | WPDGICN ---
Assessment and Plan Assessment and plan (1) Acute pancreatitis: Code(s): K85.90 - Acute pancreatitis without necrosis or infection, unspecified Status: Acute Assessment and Plan: unfortunately started drinking again after ran out of librium npo for now iv fluids and supportive care in the floor (2) Alcohol withdrawal: Code(s): F10.939 - Alcohol use, unspecified with withdrawal, unspecified Status: Acute Assessment and Plan: ciwa protocol librium, ativan prn and thiamine (3) Nausea & vomiting: Code(s): R11.2 - Nausea with vomiting, unspecified Status: Acute Assessment and Plan: antiemetics prn (4) Alcoholic fatty liver: Code(s): K70.0 - Alcoholic fatty liver Status: Acute Assessment and Plan: from alcohol abuse patient is hoping to go to detox after this hospitalization (5) Abnormal liver enzymes: Code(s): R74.8 - Abnormal levels of other serum enzymes Status: Acute (6) Lactic acidosis: Code(s): E87.20 - Acidosis, unspecified Status: Acute GI Consult Note Consult date/time: 12/02/23 13:33 Reason for consult: pancreatitis, alcohol abuse HPI: Arin Roger is a 38 year old female with history of alcohol abuse for years (6 years ago was in rehab but sober only for 1 year, since drinking daily heavily), seizures. She was just recently discharge around New Year when was admitted for alcoholic pancreatitis, she was doing better but ran out of librium so she started drinking alcohol again then started having abdominal pain with nausea. Blood work again elevated transaminases, lipase and lactic acid, CT scan reviewed and showed ?Acute interstitial pancreatitis. Diffuse hepatic steatosis. Small sliding hiatal hernia. She is having tremors and anxious. Family member is here and says that patient has been accepted for detox rehab but only after she received medical care in the hospital and can be clear by neurology (h/o seizures) and cardiology (h/o arrhythmias) Review of Systems Constitutional: Comments: tremors Eyes: Eyes: Denies blurry vision ENT: Reports Normal hearing present Cardiovascular: Cardiovascular: Denies chest pain Respiratory: Respiratory: Denies cough Gastrointestinal: Gastrointestinal: Reports abdominal pain, Reports nausea and Reports vomiting Genitourinary: Genitourinary: Denies urinary urgency Musculoskeletal: Musculoskeletal: Denies neck pain Integumentary/Breasts: Skin/Breast: Denies rash Neurologic: Denies Abnormal speech present Psychiatric: Psychiatric: Reports anxiety PMFSH Past Medical History Medical History Alcohol withdrawal Chronic bronchitis Mitral valve prolapse Seizure off meds 5-6yrs SVT (supraventricular tachycardia) Surgical History Surgical History No history of previous surgery Family History Family History Mother Lung cancer Father Seizure Social History Social History Social History: She lives with her boyfriend and a friend. She smokes a pack a day for the past 27 years. Alcohol use as mentioned above. She smokes marijuana but denies drug use or history of IV drug use. She is full code. She nominates her sister to be the individual who would make medical decisions for her if she is unable. Smoking packs per day: 1 Smoking cigarettes per day: 20.0 Years smoked: 27 Smoking pack-years: 27.00 Smoking status: Current every day smoker Alcohol intake: current Drinks per week: 7 Substance use: current Substance use type: marijuana Other substance usage details: tested + opiates, benzo, and marijuana Last use: last drink 4pm 11/09 - no marijuana for a few days Do You Feel Safe in your Home?: Yes [place]
[2023-12-02 14:04] LABS: Hepatitis B Surface Antigen Negative (Negative)
[2023-12-02 14:10] LABS: HAV RESULT Negative (Negative); Hepatitis B Core IgM Result Negative (Negative)
[2023-12-02 14:21] LABS: Hepatitis C Virus Antibody Negative (Negative)
--- NOTE | 2023-12-02 16:37 | PM.CNGS ---
Assessment and Plan Assessment and plan (1) Acute pancreatitis: Code(s): K85.90 - Acute pancreatitis without necrosis or infection, unspecified Status: Acute Assessment and Plan: Patient with recurrent acute pancreatitis. Etiology likely due to her heavy alcohol use. No gallstones or sludge seen on CT or ultrasound. We would recommend continued medical management of her acute pancreatitis with IV fluids, bowel rest, antiemetics, and analgesics. Stressed the importance of abstaining from alcohol use. She plans to go to a detox facility after discharge. No indication for surgical intervention at this time. (2) Alcoholic fatty liver: Code(s): K70.0 - Alcoholic fatty liver Status: Acute (3) Alcohol withdrawal: Code(s): F10.939 - Alcohol use, unspecified with withdrawal, unspecified Status: Acute Assessment and Plan: [facility] protocol. Currently receiving librium, ativan, and thiamine/folic acid. (4) Abnormal liver enzymes: Code(s): R74.8 - Abnormal levels of other serum enzymes Status: Acute (5) Lactic acidosis: Code(s): E87.20 - Acidosis, unspecified Status: Acute Plan I have discussed the patient's case and plan of care with Dr. Garces. Thank you for allowing us to see the patient in consultation. History of Present Illness Consult details Consult date: 12/02/23 Reason for consult: other (Acute pancreatitis) Requesting physician: Sandra Slade, JEROME Narrative: This is a 38-year-old woman with a history of alcohol abuse who presented to the ER yesterday with complaints of abdominal pain. She was recently hospitalized from 11/10/2023 through 11/14/2023 for acute pancreatitis. She was discharged home on Librium. Her abdominal pain was improving and overall she was almost back to baseline. When her Librium ran out, she began drinking heavily again. After that, she reports her abdominal pain began to worsen again. She is planning to start rehab at a facility that accepts her insurance after she is discharged. In the ER, labs showed a lipase of 1204, AST 193, ALT 102, alk-phos 128, lactic acid 4.5 that normalized at 1.8 after IV fluids. In review of previous labs, she has a history of elevated LFTs. CT scan of the abdomen and pelvis showed acute interstitial pancreatitis, diffuse hepatic steatosis, and small sliding hiatal hernia. She had a right upper quadrant abdominal ultrasound that showed a mildly dilated common duct at 8 mm, and diffuse hepatic steatosis. No gallstones or sludge noted on CT or ultrasound. She was admitted to the hospitalist service. GI has been consulted. Our service was also consulted for acute pancreatitis. Review of Systems Review of Systems: All systems reviewed & are unremarkable except as noted in HPI and below PMFSH Past Medical History Medical History Alcohol withdrawal Chronic bronchitis Mitral valve prolapse Seizure off meds 5-6yrs SVT (supraventricular tachycardia) Surgical History Surgical History No history of previous surgery Family History Family History Mother Lung cancer Father Seizure Social History Social History Social History: She lives with her boyfriend and a friend. She smokes a pack a day for the past 27 years. Alcohol use as mentioned above. She smokes marijuana but denies drug use or history of IV drug use. She is full code. She nominates her sister to be the individual who would make medical decisions for her if she is unable. Smoking packs per day: 1 Smoking cigarettes per day: 20.0 Years smoked: 27 Smoking pack-years: 27.00 Smoking status: Current every day smoker Alcohol intake: current Drinks per week: 7 Substance use: current Substance use type: mariju
[2023-12-02] MEDS: chlordiazePOXIDE (*CRX) 25 MG CAPSULE PO ×2 (16:59→23:59)
[2023-12-02] MEDS: LORazepam INJ (*CRX) 2 MG/ML VIAL 1 MG IV PUSH ×2 (18:18→21:58)
[2023-12-02] MEDS: PANTOPRAZOLE 40 MG TABLET PO (20:03)
[2023-12-02 23:56] LABS: Glucose Point of Care 64 mg/dl (65-105)
[2023-12-03] VITALS (10 sets, daily range): BP systolic 99–112; BP diastolic 58–75; PULSE 81–109; RESP 13–15; TEMP 36.3–36.8; O2SAT 99–100
[2023-12-03] MEDS: DEXTROSE 5% 1,000 ML 1,000 ML 100 ML IVPB (00:07)
--- NOTE | 2023-12-03 00:07 | PC.NURSE ---
bs 62 informed MD Merchant , x2 apple juice given, started hypoglycemic protocol
--- NOTE | 2023-12-03 00:20 | PC.NURSE ---
bs corrected now 72
[2023-12-03 00:22] LABS: Glucose Point of Care 74 mg/dl (65-105)
[2023-12-03] MEDS: LORazepam INJ (*CRX) 2 MG/ML VIAL 1 MG IV PUSH (02:02)
[2023-12-03 04:52] LABS: Glucose Point of Care 87 mg/dl (65-105)
[2023-12-03] MEDS: chlordiazePOXIDE (*CRX) 25 MG CAPSULE PO ×4 (05:51→23:04)
[2023-12-03 06:43] LABS: Basophils Percent Auto 0.8 % (0.2-1.2); Eosinophils Absolute Auto 0.1 K/mm3 (0-0.3); Eosinophils Percent Auto 1.4 % (0-4.4); Hematocrit 38.3 % (37.0-47.0); Hemoglobin 12.8 g/dL (12.0-15.0); Immature Granulocyte Absolute 0.01 K/mm3 (0.00-0.031); Immature Granulocyte Percent A 0.2 % (0-0.5); Lymphocytes Percent Auto 33.1 % (18.3-44.2); Mean Corpuscular HGB Conc 33.4 g/dl (32-36); Mean Corpuscular Volume 98.7 fl (80-100); Mean Platelet Volume 9.8 fl (7.4-10.4); Monocytes Absolute Auto 0.5 K/mm3 (0.1-0.6); Monocytes Percent Auto 9.7 % (2.6-8.5); Neutrophils Absolute Auto 2.8 K/mm3 (1.3-6.7); Neutrophils Percent Auto 54.8 % (45.5-73.1); Platelet Count Result 157 k/mm3 (150-375); Red Blood Count 3.88 M/mm3 (4.2-5.4); Red Cell Distribution Width 12.9 % (11.5-14.5); White Blood Count 5.1 K/mm3 (4.5-10.0)
[2023-12-03 06:52] LABS: Anion Gap 9 mmol/L (8-16); Blood Urea Nitrogen 11 mg/dL (7-17); Calcium 8.9 mg/dL (8.4-10.2); Carbon Dioxide 27 mmol/L (22-30); Chloride 98 mmol/L (98-107); Estimated CRCL calculation 114 ml/min; Estimated Glomerular Filt Rate > 60; Glucose 78 mg/dL (65-110); Lipase 708 U/L (23-300); Potassium 4.2 mmol/L (3.4-5.0); Sodium 134 mmol/L (137-145)
[2023-12-03] MEDS: THIAMINE HCL 100 MG TABLET PO (08:25)
[2023-12-03] MEDS: FOLIC ACID 1 MG TABLET PO (08:25)
[2023-12-03] MEDS: MULTIVITAMINS THERAPEUTIC TAB (*BKC) 1 TABLET PO (08:25)
[2023-12-03] MEDS: NICOTINE (*PBKC) 21 MG PATCH 1 PATCH TRANSDERM (08:25)
[2023-12-03] MEDS: ONDANSETRON HCL ODT 4 MG TABLET PO (08:31)
[2023-12-03 08:32] LABS: Magnesium 1.9 mg/dL (1.6-2.3)
[2023-12-03] MEDS: LORazepam INJ (*CRX) 2 MG/ML VIAL IV PUSH ×3 (08:32→23:18)
[2023-12-03 09:16] LABS: Partial Thromboplastin Time 28.1 SECONDS (22.3-36.8)
[2023-12-03 09:23] LABS: Alanine Aminotransferase 74 U/L (6-35); Albumin Level 4.2 g/dL (3.5-5.1); Alkaline Phosphatase 94 U/L (38-126); Anion Gap 9 mmol/L (8-16); Aspartate Amino Transferase 119 U/L (14-36); Bilirubin,Total 1.5 mg/dL (0.2-1.3); Blood Urea Nitrogen 11 mg/dL (7-17); Calcium 8.9 mg/dL (8.4-10.2); Carbon Dioxide 27 mmol/L (22-30); Chloride 98 mmol/L (98-107); Estimated CRCL calculation 97 ml/min; Estimated Glomerular Filt Rate > 60; Glucose 82 mg/dL (65-110); Potassium 3.4 mmol/L (3.4-5.0); Sodium 134 mmol/L (137-145)
--- NOTE | 2023-12-03 09:52 | WPDNEURCNPN ---
Assessment and Plan Assessment and plan (1) Alcohol withdrawal: Code(s): F10.939 - Alcohol use, unspecified with withdrawal, unspecified Status: Acute (2) Epilepsy: Code(s): G40.909 - Epilepsy, unspecified, not intractable, without status epilepticus Status: Acute Plan Ms. Pedro is a 38 year old female with a history of epilepsy and chronic alcohol use/alcohol withdrawal presenting for pancreatitis. She has been off of her anti-seizure medications for several years. Her last seizure was about 1.5 years ago. We discussed putting patient back on anti-seizure medication, and she is agreeable. Will start Keppra 500mg BID. Patient has previously taken this and does not recall have any adverse reaction to it. Discussed seizure precautions as well. Will need to plan on Neurology follow-up as outpatient as well. Consult date: 12/03/23 Reason for consult: History of seizures, non compliant on medication HPI: Arin Pedro is a 38 year old female with a history of alcohol use, alcohol withdrawal, SVT, MVP presenting due to concerns for pancreatitis. Patient has had several admissions over the past few months for alcohol withdrawal and pancreatitis. She most recently was admitted about 3 weeks ago and discharged on Librium. However she ran out of Librium and started drinking again. She presented on 12/01 to the ED due to abdominal pain, raising concern for pancreatitis. She is currently being treated for pancreatitis. Patient has a remote history of seizures and has not been on any seizure-medications for the past 5-6 years. Patient reports that she was diagnosed with epilepsy around age 21. Her last seizure was about a year and a half ago. She has previously been on Lamictal, phenobarbital, and Keppra. She stopped taking her seizure medications around 5-6 years ago for no particular reason. She has a family history of epilepsy in her father and sister. Review of Systems Review of Systems: All systems reviewed & are unremarkable except as noted in HPI and below Gastrointestinal: Gastrointestinal: Reports abdominal pain PMFSH Past Medical History Medical History Alcohol withdrawal Chronic bronchitis Mitral valve prolapse Seizure off meds 5-6yrs SVT (supraventricular tachycardia) Surgical History Surgical History No history of previous surgery Family History Family History Mother Lung cancer Father Seizure Social History Social History Social History: She lives with her boyfriend and a friend. She smokes a pack a day for the past 27 years. Alcohol use as mentioned above. She smokes marijuana but denies drug use or history of IV drug use. She is full code. She nominates her sister to be the individual who would make medical decisions for her if she is unable. Smoking packs per day: 1 Smoking cigarettes per day: 20.0 Years smoked: 27 Smoking pack-years: 27.00 Smoking status: Current every day smoker Alcohol intake: current Drinks per week: 7 Substance use: current Substance use type: marijuana Other substance usage details: tested + opiates, benzo, and marijuana Last use: last drink 4pm 11/09 - no marijuana for a few days Do You Feel Safe in your Home?: Yes Lack of Transportation: No Lack of Food: Never True Current Housing: I Have Housing Concerned About Future Housing: No Difficulty Paying Gas/Electric Bills: No Difficulty Paying for Meds: No Currently Unemployed: YES Education: High School Diploma/GED Difficulty w/ Childcare or Family Care: No Spiritual care concerns: Yes Meds Home Medications and Allergies Home Medications Medication Instructions Recorded Confirmed Type chlordiazepoxide HCl 25 mg capsule 25 mg PO Q12HR #10
[2023-12-03 10:35] LABS: Hepatitis B Surface Antigen Negative (Negative)
[2023-12-03 10:39] LABS: HAV RESULT Negative (Negative); Hepatitis B Core IgM Result Negative (Negative)
[2023-12-03 10:51] LABS: Hepatitis C Virus Antibody Negative (Negative)
[2023-12-03] MEDS: MORPHINE SULFATE (*CRX) 4 MG/ML INJ IV PUSH ×2 (11:09→19:47)
--- NOTE | 2023-12-03 11:36 | PM.IMPN ---
Progress Note: A&P Assessment and Plan (1) Abnormal liver enzymes: Code(s): R74.8 - Abnormal levels of other serum enzymes Status: Acute (2) Acute pancreatitis: Code(s): K85.90 - Acute pancreatitis without necrosis or infection, unspecified Status: Acute Assessment and Plan: -history of ongoing alcohol abuse, recently restarted drinking daily after running on a Librium -try full liquid diet -DC IV fluids -continue pain management every 4 hours (3) Hepatic steatosis: Code(s): K76.0 - Fatty (change of) liver, not elsewhere classified Status: Acute Assessment and Plan: -history of fatty liver, from chronic alcohol abuse -patient anticipated to be discharged to inpatient alcohol detox center s/p: medical evaluation and clearance (4) Hiatal hernia: Code(s): K44.9 - Diaphragmatic hernia without obstruction or gangrene Status: Acute Plan Continue home medications: VTE Prophylaxis: SCDs DIET: Advance diet as tolerated Anticipated hospital stay: <1 day anticipate discharge in the a.m. Code Status: Full Code Subjective Date/time seen: 12/03/23 11:36 Interval history: Chief Complaint: requesting medical/alcohol detox Narrative: HPI provided by patient and spouse by the bedside Mrs. Pedro is a 38-year-old female with PMHx:? Alcohol abuse, chronic bronchitis, mitral valve prolapse, history of seizures noncompliant with medication, SVT not currently taking any medication for rate control.? Presented to the emergency with abdominal pain. Pt reports her pain as generalized, radiates to her back, reports her pain is often precipitated after eating.Pt admits hx of recent hospitalizations citing she was discharged this facility 2-3 weeks ago, was given Librium.? Patient reports fever now comes while taking Librium states when she runs out she usually starts drinking again.? Patient admits she has been drinking for the past few days her last drink was right before admission, she states she drinks 2pints of alcohol daily, she reports history seizures with alcohol withdrawal patient also admits history of multiple diagnosis of pancreatitis the past.? Patient states that she is here for medical treatment and clearance so that she is able to go to rehabilitation center in [place].? Patient reports anxiety with mild tremors, she denies any chest pain shortness a breath, fever, chills, cough,or sore throat at this time. Interval history: 12/03/2023: Patient seen this morning, she is resting in the bed easily arouses family by the bedside, she reports no overnight events, states she is ready to try full liquid diet. Denies any chest pain nausea vomiting fever chills at this time. Waiting for consultation automatic seamer neurologist. Review of Systems Review of Systems: All systems reviewed & are unremarkable except as noted in HPI and below Exam Narrative: GENERAL: Lying in the bed resting with eyes closed easily arouses in no acute distress HEAD: Normocephalic, atraumatic. EYES: PERRLA and EOMI. ENT: grossly unremarkable NECK: Supple. CHEST: Clear to auscultation. No respiratory distress. HEART: tachycardic, regular rhythm ABDOMEN: Soft, diffusely tender especially in the epigastrium, no guarding or rebound EXTREMITIES: Normal range of motion. No edema. SKIN: Warm, dry, no rash. NEURO: No focal deficits. Alert and oriented x3. PSYCH: Normal mood and affect. Objective Data Vital Signs Vital Signs: Vital Signs - 24 hr 12/02/23 12:00 12/02/23 12:00 12/02/23 14:00 Temperature 96.8 F L Pulse Rate 77 68 Pulse Rate [Monitor] Respiratory Rate 17 Blood Pressure 104/62 102/61 Pulse Oximetry 98 Oxygen Delivery 12/02/23 14:06 12/02/23 16:17 12/02/23 16:00 Temperature Pulse Rate 66 Pulse Rate [Monitor] 80 Respiratory Rate Blood Pressure Pulse Oximetry Oxygen Delivery Room Air 12/02/23 18:17 12/02/23 18:17
[2023-12-03 11:43] LABS: Glucose Point of Care 91 mg/dl (65-105)
--- NOTE | 2023-12-03 13:02 | PM.CNCAR ---
Assessment and Plan Assessment and plan (1) SVT (supraventricular tachycardia): Code(s): I47.10 - Supraventricular tachycardia, unspecified Status: Acute Plan This is a 38-year-old lady unfortunately suffering with severe alcoholism who has a history of SVT and reported history of mitral valve prolapse. She has not been on any medical therapy for her arrhythmias for at least 6 or 7 years by which she is telling me. She has not had any arrhythmias since being in the hospital. She also reports history of mitral valve prolapse. I do not appreciate a mid systolic click nor any murmur of MR on physical exam. At this point her cardiac status is clinically stable she does not need to be placed on antiarrhythmic therapy for SVT since she has not had this treated for at least 6 years and is currently not having any difficulty with arrhythmias. By physical exam she has no evidence of mitral valve prolapse and I do not believe she needs to stay in the hospital for evaluation of that history either. At this point she is cleared from my perspective to be discharged for alcohol rehab program. If you have any questions or concerns regarding this opinion please let me know. At this point I am not anticipating seeing her in the office for follow-up since it sounds like things are stable without any treatment at all quite a long time Ramses Choi MD [facility] History of Present Illness History of Present Illness Consult date/time: 12/03/23 13:02 Reason For Visit: Pancreatitis Narrative: This is a 38-year-old woman I am seeing at the request of the hospitalist because she reports that she has had a previous history of supraventricular tachycardia and she reports that she has a history of mitral valve prolapse. She is unknown to me prior to this consultation and was admitted to the hospital yesterday because of alcohol intoxication and the desire to be medically cleared to attend inpatient alcohol rehab. She states she has been drinking alcohol excessively for quite a few years and has recently become interested in alcohol rehab treatment as heard she has a desire now to achieve sobriety. Cardiac-bliss she states that she has a history of tachycardia/palpitations that date back to when she was a teenager. She was told by a previous chalker soles that she had SVT and she remembers in the past being prescribed both propranolol and digoxin for this she has not taken any medication of any sort like this for at least 6 or 7 years to the best of her recollection. She also states that she remembers being told by the physician that to care for at that time that she had some mitral valve prolapse but can not remember any of the details about that or the severity of it. She currently does not report any symptoms of palpitations tachycardia chest pain orthopnea PND or edema. She has normal looking electrocardiogram and she has been on cardiac telemetry since admission to the hospital yesterday there have not been any arrhythmias identified. The patient and her state that it is desired/required for her to have a cardiology consultation before she can be transferred to a alcohol rehab program. She has never had any alcoholic delirium tremens and she denies any history of alcohol withdrawal seizures. 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 According to the patient she is going to be placed on treatment with Keppra for that. Review of Systems Constitutional: Constitutional: Reports no additional constitutional complaints Eyes: Eyes: Reports no additional eye complaints ENT: Reports system reviewed and no additional complaints, except as documented Cardiovascular: Cardiovascular: Reports no additional cardiovascular complaints Respiratory: Respiratory: Reports no additional respiratory complaints Gastrointestinal: Gastrointestinal: Reports abdominal pain Musculoskeletal
[2023-12-03] MEDS: LACTATED RINGERS 1,000 ML 75 ML IV CONT (14:15)
--- NOTE | 2023-12-03 14:55 | WPDGIPROGNO ---
Progress Note: A&P Assessment and Plan (1) Acute pancreatitis: Code(s): K85.90 - Acute pancreatitis without necrosis or infection, unspecified Status: Acute Assessment and Plan: clinically better ok to advance to low fat medical support once she is medically stable her plan is to go to detox program (2) Abnormal liver enzymes: Code(s): R74.8 - Abnormal levels of other serum enzymes Status: Acute Assessment and Plan: from alcohol abuse (3) Alcoholic fatty liver: Code(s): K70.0 - Alcoholic fatty liver Status: Acute (4) SVT (supraventricular tachycardia): Code(s): I47.10 - Supraventricular tachycardia, unspecified Status: Acute Subjective Date/time seen: 12/03/23 14:55 Interval history: abdominal pain is better and tolerated liquid diet, no nausea and would like to advance diet overall much better with less tremors family at bedside Review of Systems Review of Systems: All systems reviewed & are unremarkable except as noted in HPI and below Exam Const: General: comfortable Other: less tremulous HENMT: Face/Nose/Sinus: Normal nares present Eyes: Sclera: sclerae normal Neck: Neck: supple Resp: Auscultation: clear to auscultation bilaterally Cardio: Rate: regular rate Rhythm: regular rhythm GI: GI Palp: Yes Soft to palpation and No Guarding due to palpation present (GI) Auscultation: normal bowel sounds Skin: General skin exam: normal color Neuro: Speech: normal speech Motor exam (neuro): 5/5 motor strength present throughout Other: + tremors Extrem: General: normal to inspection Psych: Affect: Anxious affect present Objective Data Vital Signs Vital Signs: Vital Signs - 24 hr 12/02/23 16:17 12/02/23 16:00 12/02/23 18:17 Temperature Pulse Rate 66 Pulse Rate [Monitor] 80 89 Respiratory Rate Blood Pressure Pulse Oximetry Oxygen Delivery 12/02/23 18:17 12/02/23 20:00 12/02/23 20:00 Temperature Pulse Rate 104 H 104 H Pulse Rate [Monitor] Respiratory Rate Blood Pressure 114/87 Pulse Oximetry 98 Oxygen Delivery Room Air 12/02/23 20:00 12/02/23 21:44 12/03/23 00:00 Temperature 97.2 F L Pulse Rate 101 H Pulse Rate [Monitor] 104 H 83 Respiratory Rate 12 Blood Pressure 124/77 124/77 Pulse Oximetry 100 Oxygen Delivery 12/03/23 00:00 12/03/23 04:00 12/03/23 04:00 Temperature Pulse Rate 83 95 Pulse Rate [Monitor] 95 Respiratory Rate Blood Pressure Pulse Oximetry Oxygen Delivery 12/03/23 06:00 12/03/23 08:00 12/03/23 08:00 Temperature 97.8 F Pulse Rate 86 86 81 Pulse Rate [Monitor] Respiratory Rate 15 15 Blood Pressure 107/75 Pulse Oximetry 99 99 Oxygen Delivery Room Air Intake/Output Intake/Output: Intake & Output 11/30/23 12/01/23 12/02/23 12/03/23 23:59 23:59 23:59 23:59 Intake Total 1000 Balance 1000 Meds/Results Medications: Active Medications Generic Name Dose Route Start Last Admin Trade Name Freq PRN Reason Stop Dose Admin Chlordiazepoxide HCl 25 mg 12/02/23 18:00 12/03/23 12:27 Chlordiazepoxide (*Crx) 25 Mg Capsule PO 25 mg Q6HR DOREEN Administration Dextrose 12.5 gm 12/03/23 00:00 Dextrose 50% 25 Gm/50 Ml Syringe IV PUSH PRN PRN Hypoglycemia Protocol Folic Acid 1 mg 12/03/23 09:00 12/03/23 08:25 Folic Acid 1 Mg Tablet PO 1 mg DAILY DOREEN Administration Glucagon 1 mg 12/03/23 00:00 Glucagon For Inj 1 Mg Vial IM PRN PRN Hypoglycemia Protocol Glucose 15 gm 12/03/23 00:00 Glucose Oral Gel 15 Gm Of Glucse In 37.5 Gm Tube PO PRN PRN Hypoglycemia Protocol Dextrose 1,000 mls @ 100 mls/hr 12/03/23 00:00 12/03/23 00:07 Dextrose 5% 1,000 Ml IVPB 100 mls/hr PRN PRN Administration Hypoglycemia Protocol Lactated Ringer's 1,000 mls @ 75 mls/hr 12/03/23 08:15 Lr - Lactated R
[2023-12-03 19:04] LABS: Glucose Point of Care 105 mg/dl (65-105)
[2023-12-03] MEDS: PANTOPRAZOLE 40 MG TABLET PO (19:48)
[2023-12-03 23:59] LABS: Glucose Point of Care 80 mg/dl (65-105)
[2023-12-04] VITALS (9 sets, daily range): BP systolic 94–110; BP diastolic 66–76; PULSE 78–101; RESP 13–20; TEMP 35.7–36.4; O2SAT 99–100
[2023-12-04] MEDS: MORPHINE SULFATE (*CRX) 4 MG/ML INJ IV PUSH ×4 (03:02→21:06)
[2023-12-04] MEDS: chlordiazePOXIDE (*CRX) 25 MG CAPSULE PO ×3 (05:33→18:00)
[2023-12-04 05:47] LABS: Glucose Point of Care 86 mg/dl (65-105)
[2023-12-04 06:15] LABS: Basophils Percent Auto 0.4 % (0.2-1.2); Eosinophils Absolute Auto 0.1 K/mm3 (0-0.3); Eosinophils Percent Auto 2.5 % (0-4.4); Hematocrit 37.8 % (37.0-47.0); Hemoglobin 12.6 g/dL (12.0-15.0); Immature Granulocyte Absolute 0.01 K/mm3 (0.00-0.031); Immature Granulocyte Percent A 0.2 % (0-0.5); Lymphocytes Absolute Auto 1.65 K/mm3 (0.9-3.2); Mean Corpuscular HGB Conc 33.3 g/dl (32-36); Mean Corpuscular Hemoglobin 32.6 pg (26-34); Mean Corpuscular Volume 97.9 fl (80-100); Mean Platelet Volume 10.1 fl (7.4-10.4); Monocytes Absolute Auto 0.3 K/mm3 (0.1-0.6); Monocytes Percent Auto 6.7 % (2.6-8.5); Neutrophils Absolute Auto 2.4 K/mm3 (1.3-6.7); Neutrophils Percent Auto 53.2 % (45.5-73.1); Platelet Count Result 143 k/mm3 (150-375); Red Blood Count 3.86 M/mm3 (4.2-5.4); Red Cell Distribution Width 12.6 % (11.5-14.5); White Blood Count 4.5 K/mm3 (4.5-10.0)
[2023-12-04 06:26] LABS: Alanine Aminotransferase 77 U/L (6-35); Albumin Level 3.9 g/dL (3.5-5.1); Alkaline Phosphatase 78 U/L (38-126); Anion Gap 8 mmol/L (8-16); Aspartate Amino Transferase 131 U/L (14-36); Bilirubin,Total 1.2 mg/dL (0.2-1.3); Blood Urea Nitrogen 12 mg/dL (7-17); Calcium 8.8 mg/dL (8.4-10.2); Carbon Dioxide 27 mmol/L (22-30); Chloride 101 mmol/L (98-107); Estimated CRCL calculation 114 ml/min; Estimated Glomerular Filt Rate > 60; Glucose 81 mg/dL (65-110); Magnesium 1.6 mg/dL (1.6-2.3); Potassium 3.5 mmol/L (3.4-5.0); Sodium 136 mmol/L (137-145)
[2023-12-04] MEDS: THIAMINE HCL 100 MG TABLET PO (08:00)
[2023-12-04] MEDS: MULTIVITAMINS THERAPEUTIC TAB (*BKC) 1 TABLET PO (08:00)
[2023-12-04] MEDS: FOLIC ACID 1 MG TABLET PO (08:00)
[2023-12-04] MEDS: LORazepam INJ (*CRX) 2 MG/ML VIAL IV PUSH ×3 (08:07→18:04)
--- NOTE | 2023-12-04 09:10 | WPDGIPROGNO ---
Progress Note: A&P Assessment and Plan (1) Acute pancreatitis: Code(s): K85.90 - Acute pancreatitis without necrosis or infection, unspecified Status: Acute Assessment and Plan: continue to improve tolerating diet with less pain, no nausea medical support once she is medically stable her plan is to go to detox program (2) Abnormal liver enzymes: Code(s): R74.8 - Abnormal levels of other serum enzymes Status: Acute Assessment and Plan: from alcohol abuse (3) Alcoholic fatty liver: Code(s): K70.0 - Alcoholic fatty liver Status: Acute (4) SVT (supraventricular tachycardia): Code(s): I47.10 - Supraventricular tachycardia, unspecified Status: Acute Subjective Date/time seen: 12/04/23 09:10 Interval history: tolerated diet, she is comfortable, some epigastric burning sensation but for the most part she is doing better family member at bedside Review of Systems Review of Systems: All systems reviewed & are unremarkable except as noted in HPI and below Exam Const: General: comfortable Other: less tremulous HENMT: Face/Nose/Sinus: Normal nares present Eyes: Sclera: sclerae normal Neck: Neck: supple Resp: Auscultation: clear to auscultation bilaterally Cardio: Rate: regular rate Rhythm: regular rhythm GI: GI Palp: Yes Soft to palpation and No Guarding due to palpation present (GI) Auscultation: normal bowel sounds Skin: General skin exam: normal color Neuro: Speech: normal speech Motor exam (neuro): 5/5 motor strength present throughout Other: + tremors Extrem: General: normal to inspection Psych: Affect: Anxious affect present Objective Data Vital Signs Vital Signs: Vital Signs - 24 hr 12/03/23 12:00 12/03/23 16:00 12/03/23 14:00 Temperature 98.2 F Pulse Rate 109 H 81 91 Respiratory Rate 14 Blood Pressure 112/74 Pulse Oximetry 100 Oxygen Delivery 12/03/23 19:55 12/03/23 21:28 12/04/23 00:04 Temperature 97.4 F L 97.2 F L Pulse Rate 96 90 Respiratory Rate 13 13 Blood Pressure 99/58 L 110/76 Pulse Oximetry 100 100 100 Oxygen Delivery Room Air 12/04/23 05:27 12/03/23 20:00 12/04/23 00:00 Temperature 97.5 F L Pulse Rate 97 88 79 Respiratory Rate 13 Blood Pressure 100/66 Pulse Oximetry 100 Oxygen Delivery 12/04/23 04:00 Temperature Pulse Rate 93 Respiratory Rate Blood Pressure Pulse Oximetry Oxygen Delivery Intake/Output Intake/Output: Intake & Output 12/01/23 12/02/23 12/03/23 12/04/23 23:59 23:59 23:59 23:59 Intake Total 1000 1800 868 Balance 1000 1800 868 Meds/Results Medications: Active Medications Generic Name Dose Route Start Last Admin Trade Name Freq PRN Reason Stop Dose Admin Chlordiazepoxide HCl 25 mg 12/02/23 18:00 12/04/23 05:33 Chlordiazepoxide (*Crx) 25 Mg Capsule PO 25 mg Q6HR DOREEN Administration Dextrose 12.5 gm 12/03/23 00:00 Dextrose 50% 25 Gm/50 Ml Syringe IV PUSH PRN PRN Hypoglycemia Protocol Folic Acid 1 mg 12/03/23 09:00 12/04/23 08:00 Folic Acid 1 Mg Tablet PO 1 mg DAILY DOREEN Administration Glucagon 1 mg 12/03/23 00:00 Glucagon For Inj 1 Mg Vial IM PRN PRN Hypoglycemia Protocol Glucose 15 gm 12/03/23 00:00 Glucose Oral Gel 15 Gm Of Glucse In 37.5 Gm Tube PO PRN PRN Hypoglycemia Protocol Dextrose 1,000 mls @ 100 mls/hr 12/03/23 00:00 12/03/23 14:00 Dextrose 5% 1,000 Ml IVPB Infused PRN PRN Infusion Hypoglycemia Protocol Lorazepam 2 mg 12/01/23 22:09 12/04/23 08:07 Lorazepam Inj (*Crx) 2 Mg/Ml Vial IV PUSH 2 mg Q4H PRN Administration CIWA 8-15 Morphine Sulfate 4 mg 12/02/23 00:34 12/04/23 03:02 Morphine Sulfate (*Crx) 4 Mg/Ml Inj IV PUSH 4 mg Q4H PRN Administration Pain Rated 7-10 Multivitamins Therapeutic 1 tablet 12/03/23 09:00 12/04/23 08:00 Multivitamins Therapeu
[2023-12-04 11:47] LABS: Glucose Point of Care 81 mg/dl (65-105)
--- NOTE | 2023-12-04 14:30 | PM.IMPN ---
Progress Note: A&P Assessment and Plan (1) Abnormal liver enzymes: Code(s): R74.8 - Abnormal levels of other serum enzymes Status: Acute (2) Acute pancreatitis: Code(s): K85.90 - Acute pancreatitis without necrosis or infection, unspecified Status: Acute Assessment and Plan: -history of ongoing alcohol abuse, recently restarted drinking daily after running on a Librium -patient denies any nausea vomiting with diet -DC IV fluids -continue pain management every 4 hours (3) Hepatic steatosis: Code(s): K76.0 - Fatty (change of) liver, not elsewhere classified Status: Acute Assessment and Plan: -history of fatty liver, from chronic alcohol abuse -patient anticipated to be discharged to inpatient alcohol detox center s/p: medical evaluation and clearance (4) Hiatal hernia: Code(s): K44.9 - Diaphragmatic hernia without obstruction or gangrene Status: Acute Plan Continue home medications: VTE Prophylaxis: SCDs DIET: Advance diet as tolerated Anticipated hospital stay: <1 day anticipate discharge in the a.m. Code Status: Full Code Subjective Date/time seen: 12/04/23 14:30 Interval history: Interval history: Chief Complaint: requesting medical/alcohol detox Narrative: HPI provided by patient and spouse by the bedside Mrs. Pedro is a 38-year-old female with PMHx:? Alcohol abuse, chronic bronchitis, mitral valve prolapse, history of seizures noncompliant with medication, SVT not currently taking any medication for rate control.? Presented to the emergency with abdominal pain. Pt reports her pain as generalized, radiates to her back, reports her pain is often precipitated after eating.Pt admits hx of recent hospitalizations citing she was discharged this facility 2-3 weeks ago, was given Librium.? Patient reports fever now comes while taking Librium states when she runs out she usually starts drinking again.? Patient admits she has been drinking for the past few days her last drink was right before admission, she states she drinks 2pints of alcohol daily, she reports history seizures with alcohol withdrawal patient also admits history of multiple diagnosis of pancreatitis the past.? Patient states that she is here for medical treatment and clearance so that she is able to go to rehabilitation center in [place].? Patient reports anxiety with mild tremors, she denies any chest pain shortness a breath, fever, chills, cough,or sore throat at this time. Interval history: 12/03/2023: Patient seen this morning, she is resting in the bed easily arouses family by the bedside, she reports no overnight events, states she is ready to try full liquid diet.? Denies any chest pain nausea vomiting fever chills at this time.? Waiting for consultation environmental protection geologist neurologist. 12/04/2023: Patient seen this morning resting with eyes open she denies any overnight events, although she c/o of moderate anxiety this morning. she is tearful with reports of being nervous about being cleared for discharge to in-pt rehab facility. We discussed the plan to continue monitoring, will reach out to respiratory care instructor for assistance with patient to be transferred to facility via EMS if available. Review of Systems Review of Systems: All systems reviewed & are unremarkable except as noted in HPI and below Exam Narrative: GENERAL: Lying in the bed resting with eyes closed easily arouses in no acute distress HEAD: Normocephalic, atraumatic. EYES: PERRLA and EOMI. ENT: grossly unremarkable NECK: Supple. CHEST: Clear to auscultation. No respiratory distress. HEART: tachycardic, regular rhythm ABDOMEN: Soft, diffusely tender especially in the epigastrium, no guarding or rebound EXTREMITIES: Normal range of motion. No edema. SKIN: Warm, dry, no rash. NEURO: No focal deficits. Alert and oriented x3. PSYCH: Normal mood and affect. Objective Data Vital Signs Vital Signs: Vital Signs - 24 h
[2023-12-04 18:16] LABS: Glucose Point of Care 138 mg/dl (65-105)
[2023-12-04] MEDS: levETIRAcetam 500 MG TABLET PO (21:06)
[2023-12-04] MEDS: PANTOPRAZOLE 40 MG TABLET PO (21:07)
[2023-12-05] VITALS (10 sets, daily range): BP systolic 92–105; BP diastolic 60–78; PULSE 81–109; RESP 14–20; TEMP 36–36.4; O2SAT 100
[2023-12-05] MEDS: chlordiazePOXIDE (*CRX) 25 MG CAPSULE PO ×4 (00:30→17:06)
[2023-12-05] MEDS: LORazepam INJ (*CRX) 2 MG/ML VIAL 1 MG IV PUSH ×2 (01:06→22:00)
[2023-12-05] MEDS: MORPHINE SULFATE (*CRX) 4 MG/ML INJ IV PUSH (02:25)
[2023-12-05] MEDS: LORazepam INJ (*CRX) 2 MG/ML VIAL IV PUSH ×3 (05:29→16:29)
[2023-12-05 06:13] LABS: Basophils Percent Auto 0.6 % (0.2-1.2); Eosinophils Absolute Auto 0.1 K/mm3 (0-0.3); Eosinophils Percent Auto 1.8 % (0-4.4); Hemoglobin 12.4 g/dL (12.0-15.0); Immature Granulocyte Absolute 0.02 K/mm3 (0.00-0.031); Immature Granulocyte Percent A 0.4 % (0-0.5); Lymphocytes Percent Auto 35.5 % (18.3-44.2); Mean Corpuscular HGB Conc 33.5 g/dl (32-36); Mean Corpuscular Hemoglobin 33.2 pg (26-34); Mean Corpuscular Volume 98.9 fl (80-100); Mean Platelet Volume 10.2 fl (7.4-10.4); Monocytes Absolute Auto 0.3 K/mm3 (0.1-0.6); Monocytes Percent Auto 6.7 % (2.6-8.5); Neutrophils Absolute Auto 2.8 K/mm3 (1.3-6.7); Platelet Count Result 142 k/mm3 (150-375); Red Blood Count 3.74 M/mm3 (4.2-5.4); Red Cell Distribution Width 12.3 % (11.5-14.5); White Blood Count 5.1 K/mm3 (4.5-10.0)
[2023-12-05 06:30] LABS: Alanine Aminotransferase 109 U/L (6-35); Alkaline Phosphatase 82 U/L (38-126); Anion Gap 8 mmol/L (8-16); Aspartate Amino Transferase 176 U/L (14-36); Bilirubin,Total 1.1 mg/dL (0.2-1.3); Blood Urea Nitrogen 12 mg/dL (7-17); Calcium 8.9 mg/dL (8.4-10.2); Carbon Dioxide 27 mmol/L (22-30); Chloride 100 mmol/L (98-107); Estimated CRCL calculation 114 ml/min; Estimated Glomerular Filt Rate > 60; Glucose 87 mg/dL (65-110); Magnesium 1.4 mg/dL (1.6-2.3); Potassium 3.7 mmol/L (3.4-5.0); Sodium 135 mmol/L (137-145)
[2023-12-05] MEDS: THIAMINE HCL 100 MG TABLET PO (10:20)
[2023-12-05] MEDS: levETIRAcetam 500 MG TABLET PO ×2 (10:20→20:41)
[2023-12-05] MEDS: MULTIVITAMINS THERAPEUTIC TAB (*BKC) 1 TABLET PO (10:20)
[2023-12-05] MEDS: FOLIC ACID 1 MG TABLET PO (10:20)
[2023-12-05] MEDS: NICOTINE (*PBKC) 4 MG GUM PO ×2 (10:20→17:07)
--- NOTE | 2023-12-05 11:51 | PM.IMPN ---
Progress Note: A&P Assessment and Plan (1) Abnormal liver enzymes: Code(s): R74.8 - Abnormal levels of other serum enzymes Status: Acute (2) Acute pancreatitis: Code(s): K85.90 - Acute pancreatitis without necrosis or infection, unspecified Status: Acute Assessment and Plan: -history of ongoing alcohol abuse, recently restarted drinking daily after running on a Librium -patient denies any nausea vomiting with diet -DC IV fluids -continue pain management every 4 hours (3) Hepatic steatosis: Code(s): K76.0 - Fatty (change of) liver, not elsewhere classified Status: Acute Assessment and Plan: -history of fatty liver, from chronic alcohol abuse -patient anticipated to be discharged to inpatient alcohol detox center s/p: medical evaluation and clearance (4) Hiatal hernia: Code(s): K44.9 - Diaphragmatic hernia without obstruction or gangrene Status: Acute Plan Continue home medications: VTE Prophylaxis: SCDs DIET: Advance diet as tolerated Anticipated hospital stay: <1 day ongoing care coordination, to arrange transfer directly from inpatient medical treatment to inpatient acute alcohol rehabilitation facility, excepting facility reports they do not have any beds until possibly Wednesday, or Wednesday, patient been accepted please see care coordination notes Code Status: Full Code Subjective Date/time seen: 12/05/23 11:51 Interval history: Interval history: Chief Complaint: requesting medical/alcohol detox Narrative: HPI provided by patient and spouse by the bedside Mrs. Pedro is a 38-year-old female with PMHx:? Alcohol abuse, chronic bronchitis, mitral valve prolapse, history of seizures noncompliant with medication, SVT not currently taking any medication for rate control.? Presented to the emergency with abdominal pain. Pt reports her pain as generalized, radiates to her back, reports her pain is often precipitated after eating.Pt admits hx of recent hospitalizations citing she was discharged this facility 2-3 weeks ago, was given Librium.? Patient reports fever now comes while taking Librium states when she runs out she usually starts drinking again.? Patient admits she has been drinking for the past few days her last drink was right before admission, she states she drinks 2pints of alcohol daily, she reports history seizures with alcohol withdrawal patient also admits history of multiple diagnosis of pancreatitis the past.? Patient states that she is here for medical treatment and clearance so that she is able to go to rehabilitation center in [place].? Patient reports anxiety with mild tremors, she denies any chest pain shortness a breath, fever, chills, cough,or sore throat at this time. Interval history: 12/03/2023: Patient seen this morning, she is resting in the bed easily arouses family by the bedside, she reports no overnight events, states she is ready to try full liquid diet.? Denies any chest pain nausea vomiting fever chills at this time.? Waiting for consultation life science technician neurologist. 12/04/2023: Patient seen this morning resting with eyes open she denies any overnight events, although she c/o of moderate anxiety this morning. she is tearful with reports of being nervous about being cleared for discharge to in-pt rehab facility.? We discussed the plan to continue monitoring, will reach out to clinical care manager for assistance with patient to be transferred to facility via EMS if available. 12/05/2023: pt seen this am, resting with eyes closed easily arouses, she reports yesterday she had lots of epigastric pain, after eating, she reports mild nausea, denies any vomiting, fever or chills. Review of Systems Review of Systems: All systems reviewed & are unremarkable except as noted in HPI and below Exam Narrative: GENERAL: Lying in the bed resting with eyes closed easily arouses in no acute distress HEAD: Normocephalic, atraumatic. EYES
[2023-12-05] MEDS: HYDROcodone/acetaminophen (*CRX) 5-325 MG TABLET 1 TAB PO ×3 (12:39→22:01)
--- NOTE | 2023-12-05 13:23 | WPDGIPROGNO ---
Progress Note: A&P Assessment and Plan (1) Acute pancreatitis: Code(s): K85.90 - Acute pancreatitis without necrosis or infection, unspecified Status: Acute Assessment and Plan: tolerating diet with less pain, no nausea medical support once she is medically stable her plan is to go to detox program will follow as needed (2) Abnormal liver enzymes: Code(s): R74.8 - Abnormal levels of other serum enzymes Status: Acute Assessment and Plan: from alcohol abuse transaminases 100's thiamine, mvi, nutrition support (3) Alcoholic fatty liver: Code(s): K70.0 - Alcoholic fatty liver Status: Acute (4) SVT (supraventricular tachycardia): Code(s): I47.10 - Supraventricular tachycardia, unspecified Status: Acute Subjective Date/time seen: 12/05/23 13:23 Interval history: no major changes, eating, still similar epigastric pain family member at bedside Review of Systems Review of Systems: All systems reviewed & are unremarkable except as noted in HPI and below Exam Const: General: comfortable Other: less tremulous HENMT: Face/Nose/Sinus: Normal nares present Eyes: Sclera: sclerae normal Neck: Neck: supple Resp: Auscultation: clear to auscultation bilaterally Cardio: Rate: regular rate Rhythm: regular rhythm GI: GI Palp: Yes Soft to palpation and No Guarding due to palpation present (GI) Auscultation: normal bowel sounds Other: less tenderness, no rebound Skin: General skin exam: normal color Neuro: Speech: normal speech Motor exam (neuro): 5/5 motor strength present throughout Other: + tremors Extrem: General: normal to inspection Psych: Affect: Anxious affect present Objective Data Vital Signs Vital Signs: Vital Signs - 24 hr 12/04/23 14:00 12/04/23 16:00 12/04/23 20:00 Temperature 96.2 F L 96.8 F L Pulse Rate 97 78 84 Respiratory Rate 20 16 Blood Pressure 99/73 L 94/66 L Pulse Oximetry 99 99 Oxygen Delivery 12/04/23 20:00 12/04/23 20:00 12/05/23 00:00 Temperature Pulse Rate 82 81 Respiratory Rate Blood Pressure Pulse Oximetry 99 Oxygen Delivery Room Air 12/05/23 04:00 12/05/23 06:00 12/05/23 08:00 Temperature 96.8 F L Pulse Rate 84 86 90 Respiratory Rate 14 Blood Pressure 105/78 Pulse Oximetry 100 Oxygen Delivery 12/05/23 09:22 12/05/23 08:00 12/05/23 12:00 Temperature Pulse Rate 98 Respiratory Rate Blood Pressure Pulse Oximetry 100 Oxygen Delivery Room Air Room Air Intake/Output Intake/Output: Intake & Output 12/02/23 12/03/23 12/04/23 12/05/23 23:59 23:59 23:59 23:59 Intake Total 1800 314 474 Balance 1800 3140 474 Meds/Results Medications: Active Medications Generic Name Dose Route Start Last Admin Trade Name Freq PRN Reason Stop Dose Admin Hydrocodone Bitart/Acetaminophen 1 tab 12/05/23 12:05 12/05/23 12:39 Hydrocodone/Acetaminophen (*Crx) 5-325 Mg Tablet PO 1 tab Q4H PRN Administration Pain Rated 4-6 Chlordiazepoxide HCl 25 mg 12/02/23 18:00 12/05/23 12:39 Chlordiazepoxide (*Crx) 25 Mg Capsule PO 25 mg Q6HR DOREEN Administration Dextrose 12.5 gm 12/03/23 00:00 Dextrose 50% 25 Gm/50 Ml Syringe IV PUSH PRN PRN Hypoglycemia Protocol Folic Acid 1 mg 12/03/23 09:00 12/05/23 10:20 Folic Acid 1 Mg Tablet PO 1 mg DAILY DOREEN Administration Glucagon 1 mg 12/03/23 00:00 Glucagon For Inj 1 Mg Vial IM PRN PRN Hypoglycemia Protocol Glucose 15 gm 12/03/23 00:00 Glucose Oral Gel 15 Gm Of Glucse In 37.5 Gm Tube PO PRN PRN Hypoglycemia Protocol Dextrose 1,000 mls @ 100 mls/hr 12/03/23 00:00 12/03/23 14:00 Dextrose 5% 1,000 Ml IVPB Infused PRN PRN Infusion Hypoglycemia Protocol Levetiracetam 500 mg 12/04/23 21:00 12/05/23 10:20 Levetiracetam 500 Mg Tablet PO 500 mg Q12HR DOREEN Administration
[2023-12-05] MEDS: PANTOPRAZOLE 40 MG TABLET PO (20:41)
[2023-12-05] MEDS: ONDANSETRON HCL ODT 4 MG TABLET PO (22:05)
[2023-12-06] VITALS (10 sets, daily range): BP systolic 88–100; BP diastolic 50–69; PULSE 85–94; RESP 14–18; TEMP 36.1–36.8; O2SAT 97–100
[2023-12-06] MEDS: chlordiazePOXIDE (*CRX) 25 MG CAPSULE PO ×4 (00:11→18:59)
[2023-12-06] MEDS: LORazepam INJ (*CRX) 2 MG/ML VIAL 1 MG IV PUSH ×3 (03:03→12:19)
[2023-12-06] MEDS: HYDROcodone/acetaminophen (*CRX) 5-325 MG TABLET 1 TAB PO ×2 (03:03→06:48)
[2023-12-06] MEDS: MULTIVITAMINS THERAPEUTIC TAB (*BKC) 1 TABLET PO (08:52)
[2023-12-06] MEDS: levETIRAcetam 500 MG TABLET PO ×2 (08:52→21:07)
[2023-12-06] MEDS: THIAMINE HCL 100 MG TABLET PO (08:53)
[2023-12-06] MEDS: FOLIC ACID 1 MG TABLET PO (08:53)
[2023-12-06 08:58] LABS: Alanine Aminotransferase 97 U/L (6-35); Albumin Level 3.9 g/dL (3.5-5.1); Alkaline Phosphatase 75 U/L (38-126); Anion Gap 8 mmol/L (8-16); Aspartate Amino Transferase 111 U/L (14-36); Bilirubin,Total 0.9 mg/dL (0.2-1.3); Blood Urea Nitrogen 14 mg/dL (7-17); Carbon Dioxide 25 mmol/L (22-30); Chloride 102 mmol/L (98-107); Estimated CRCL calculation 114 ml/min; Estimated Glomerular Filt Rate > 60; Glucose 96 mg/dL (65-110); Magnesium 1.5 mg/dL (1.6-2.3); Potassium 3.9 mmol/L (3.4-5.0); Sodium 135 mmol/L (137-145)
[2023-12-06] MEDS: ONDANSETRON HCL ODT 4 MG TABLET PO (10:40)
[2023-12-06 10:51] LABS: Basophils Absolute Auto 0.1 K/mm3 (0.0-0.1); Basophils Percent Auto 0.6 % (0.2-1.2); Eosinophils Absolute Auto 0.1 K/mm3 (0-0.3); Eosinophils Percent Auto 0.9 % (0-4.4); Hematocrit 38.1 % (37.0-47.0); Hemoglobin 12.5 g/dL (12.0-15.0); Immature Granulocyte Absolute 0.03 K/mm3 (0.00-0.031); Immature Granulocyte Percent A 0.4 % (0-0.5); Lymphocytes Percent Auto 16.5 % (18.3-44.2); Mean Corpuscular HGB Conc 32.8 g/dl (32-36); Mean Corpuscular Hemoglobin 32.9 pg (26-34); Mean Corpuscular Volume 100.3 fl (80-100); Mean Platelet Volume 10.7 fl (7.4-10.4); Monocytes Absolute Auto 0.5 K/mm3 (0.1-0.6); Monocytes Percent Auto 5.8 % (2.6-8.5); Neutrophils Absolute Auto 6.5 K/mm3 (1.3-6.7); Neutrophils Percent Auto 75.8 % (45.5-73.1); Platelet Count Result 152 k/mm3 (150-375); Red Cell Distribution Width 12.7 % (11.5-14.5); White Blood Count 8.5 K/mm3 (4.5-10.0)
[2023-12-06] MEDS: polyethylene glycoL 3350 17 GM POWD.PACK PO (12:17)
[2023-12-06] MEDS: KETOROLAC 30 MG/ML VIAL (*BKC) IV PUSH ×2 (12:19→21:06)
[2023-12-06] MEDS: DOCUSATE SODIUM 100 MG CAPSULE PO (12:20)
--- NOTE | 2023-12-06 12:54 | PM.IMPN ---
Progress Note: A&P Assessment and Plan (1) Abnormal liver enzymes: Code(s): R74.8 - Abnormal levels of other serum enzymes Status: Acute Assessment and Plan: AST/ALT 111/97 today, trending down transitioned from hydrocodone to Toradol (2) Acute pancreatitis: Code(s): K85.90 - Acute pancreatitis without necrosis or infection, unspecified Status: Acute Assessment and Plan: -history of ongoing alcohol abuse, daily drinker prior to admission -tolerating low fat -antiemetics PRN -transitioned to Toradol for PRN pain control -GI following (3) Hepatic steatosis: Code(s): K76.0 - Fatty (change of) liver, not elsewhere classified Status: Acute Assessment and Plan: -history of fatty liver, from chronic alcohol abuse -patient anticipated to be discharged to inpatient alcohol detox center s/p: medical evaluation and clearance -CC following - bed to be open on (4) Hiatal hernia: Code(s): K44.9 - Diaphragmatic hernia without obstruction or gangrene Status: Acute Plan Continue home medications: VTE Prophylaxis: SCDs DIET: Advance diet as tolerated Code Status: Full Code Subjective Date/time seen: 12/06/23 12:54 Interval history: Patient doing well this morning, reports some intermittent nausea but is tolerating eating and drinking. She is still having pain, diffuse through epigastric area. She had a small BM this morning, but still feels constipated. Will start on daily colace and miralax. Transitioned pain medication to toradol as she will not be able to have opioids at the detox facility and her liver enzymes although improving are still elevated. Patient to remain inpatient for pain control until she can be d/c directly to facility on . Review of Systems Review of Systems: All systems reviewed & are unremarkable except as noted in HPI and below Exam Narrative: GENERAL: Lying in the bed in no acute distress HEAD: Normocephalic, atraumatic. EYES: PERRLA and EOMI. NECK: Supple. CHEST: Clear to auscultation. No respiratory distress. HEART: RRR ABDOMEN: Soft, diffusely tender especially in the epigastrium, no guarding or rebound. BS hypoactive. EXTREMITIES: Normal range of motion. No edema. SKIN: Warm, dry, no rash. NEURO: No focal deficits. Alert and oriented x3. PSYCH: Normal mood and affect. Objective Data Vital Signs Vital Signs: Vital Signs - 24 hr 12/05/23 14:00 12/05/23 16:00 12/05/23 20:00 Temperature 96.9 F L Pulse Rate 97 100 109 H Pulse Rate [Monitor] Respiratory Rate 20 Blood Pressure 92/60 L Pulse Oximetry 100 Oxygen Delivery 12/05/23 20:00 12/05/23 22:00 12/06/23 00:00 Temperature 97.5 F L Pulse Rate 96 87 Pulse Rate [Monitor] 109 H Respiratory Rate 14 Blood Pressure 92/63 L Pulse Oximetry 100 Oxygen Delivery 12/06/23 04:00 12/06/23 00:00 12/06/23 04:00 Temperature Pulse Rate 85 Pulse Rate [Monitor] 87 85 Respiratory Rate Blood Pressure Pulse Oximetry Oxygen Delivery 12/06/23 06:00 12/06/23 08:00 12/06/23 08:00 Temperature 97.3 F L Pulse Rate 93 Pulse Rate [Monitor] 93 Respiratory Rate 14 Blood Pressure 94/65 L Pulse Oximetry 100 97 Oxygen Delivery Room Air 12/06/23 08:00 12/06/23 12:00 Temperature Pulse Rate 94 94 Pulse Rate [Monitor] Respiratory Rate Blood Pressure Pulse Oximetry Oxygen Delivery Intake/Output Intake/Output: Intake & Output 12/03/23 12/04/23 12/05/23 12/06/23 23:59 23:59 23:59 23:59 Intake Total 1800 3147 1246 240 Balance 1800 3147 1246 240 Meds/Results Medications: Active Medications Generic Name Dose Route Start Last Admin Trade Name Freq PRN Reason Stop Dose Admin Chlordiazepoxide HCl 25 mg 12/02/23 18:00 12/06/23 12:19 Chlordiazepoxide (*Crx) 25 Mg Capsule PO 25 mg Q6HR DOREEN Administration Dextrose 12.5 gm 12/03/23 00:00 Dextrose 50%
[2023-12-06] MEDS: SODIUM CHLORIDE 0.9% IV 500 ML IV CONT (13:29)
[2023-12-06] MEDS: PANTOPRAZOLE 40 MG TABLET PO (21:07)
[2023-12-07] VITALS (7 sets, daily range): BP systolic 91; BP diastolic 56–64; PULSE 73–83; RESP 14–18; TEMP 36.2–36.4; O2SAT 100
[2023-12-07] MEDS: chlordiazePOXIDE (*CRX) 25 MG CAPSULE PO ×3 (00:31→11:59)
[2023-12-07] MEDS: KETOROLAC 30 MG/ML VIAL (*BKC) IV PUSH ×2 (05:48→11:59)
[2023-12-07 06:14] LABS: Basophils Percent Auto 0.5 % (0.2-1.2); Eosinophils Absolute Auto 0.1 K/mm3 (0-0.3); Eosinophils Percent Auto 1.9 % (0-4.4); Hematocrit 38.1 % (37.0-47.0); Hemoglobin 12.5 g/dL (12.0-15.0); Immature Granulocyte Absolute 0.02 K/mm3 (0.00-0.031); Immature Granulocyte Percent A 0.3 % (0-0.5); Lymphocytes Absolute Auto 2.03 K/mm3 (0.9-3.2); Lymphocytes Percent Auto 35.1 % (18.3-44.2); Mean Corpuscular HGB Conc 32.8 g/dl (32-36); Mean Corpuscular Hemoglobin 32.6 pg (26-34); Mean Corpuscular Volume 99.5 fl (80-100); Mean Platelet Volume 10.3 fl (7.4-10.4); Monocytes Absolute Auto 0.4 K/mm3 (0.1-0.6); Monocytes Percent Auto 7.1 % (2.6-8.5); Neutrophils Absolute Auto 3.2 K/mm3 (1.3-6.7); Neutrophils Percent Auto 55.1 % (45.5-73.1); Platelet Count Result 144 k/mm3 (150-375); Red Blood Count 3.83 M/mm3 (4.2-5.4); Red Cell Distribution Width 12.5 % (11.5-14.5); White Blood Count 5.8 K/mm3 (4.5-10.0)
[2023-12-07 06:31] LABS: Alanine Aminotransferase 77 U/L (6-35); Albumin Level 3.5 g/dL (3.5-5.1); Alkaline Phosphatase 71 U/L (38-126); Anion Gap 6 mmol/L (8-16); Aspartate Amino Transferase 67 U/L (14-36); Bilirubin,Total 0.6 mg/dL (0.2-1.3); Blood Urea Nitrogen 12 mg/dL (7-17); Carbon Dioxide 28 mmol/L (22-30); Chloride 104 mmol/L (98-107); Estimated CRCL calculation 97 ml/min; Estimated Glomerular Filt Rate > 60; Glucose 85 mg/dL (65-110); Magnesium 1.5 mg/dL (1.6-2.3); Potassium 4.1 mmol/L (3.4-5.0); Sodium 138 mmol/L (137-145)
[2023-12-07] MEDS: FOLIC ACID 1 MG TABLET PO (09:09)
[2023-12-07] MEDS: THIAMINE HCL 100 MG TABLET PO (09:09)
[2023-12-07] MEDS: levETIRAcetam 500 MG TABLET PO (09:09)
[2023-12-07] MEDS: MULTIVITAMINS THERAPEUTIC TAB (*BKC) 1 TABLET PO (09:09)
[2023-12-07] MEDS: LORazepam INJ (*CRX) 2 MG/ML VIAL 1 MG IV PUSH (10:35)
[2023-12-07] MEDS: ONDANSETRON HCL ODT 4 MG TABLET PO (10:36)
--- NOTE | 2023-12-07 15:35 | PM.DS ---
DS: Admitting Diagnosis Discharge Date 12/07/23 Admitting Diagnosis abdominal pain DS: Discharge Diagnosis Discharge Diagnosis (1) Abnormal liver enzymes: Code(s): R74.8 - Abnormal levels of other serum enzymes Status: Acute Assessment and Plan: AST/ALT 67/77 today, trending down transitioned from hydrocodone to Toradol (2) Acute pancreatitis: Code(s): K85.90 - Acute pancreatitis without necrosis or infection, unspecified Status: Acute Assessment and Plan: -history of ongoing alcohol abuse, daily drinker prior to admission -tolerating low fat -antiemetics PRN -transitioned to Toradol for PRN pain control -f/u with GI outpatient (3) Hepatic steatosis: Code(s): K76.0 - Fatty (change of) liver, not elsewhere classified Status: Acute Assessment and Plan: -history of fatty liver, from chronic alcohol abuse -patient anticipated to be discharged to inpatient alcohol detox center s/p: medical evaluation and clearance -CC following - bed to be open on . D/C tonight and plans to go directly there. (4) Hiatal hernia: Code(s): K44.9 - Diaphragmatic hernia without obstruction or gangrene Status: Acute DS: Summary Hospital Course Hospital Course: Patient is a 38 YO female with PMH of alcohol abuse, chronic bronchitis, mitral valve prolapse, history of seizures noncompliant with medication, SVT not currently taking any medication for rate control. She was admitted with with abdominal pain, found to have pancreatitis. GI consulted, medical management given and labs have stabilized and improving. Patient was previously discharged this facility 2-3 weeks ago, and given Librium. Patient admitted to drinking for the past few days prior to admission, usually she drinks 2pints of alcohol daily. She has history of seizures with alcohol withdrawal. Patient seeking to go to rehabilitation center in [place]. Care coordination has been following and bed is arranged for patient to have prompt arrival between 9-10am tomorrow morning. Patient prescriptions have been ordered for continuation aside from benzos, as this was confirmed not to be allowed. Pain has been controlled on PO toradol. Patient reporting feeling anxious for rehab, but otherwise at her baseline. She is medically stable for d/c tonight. Status at Discharge Functional status at discharge: independent ambulation Overall status at discharge: patient is progressing back to baseline Exam Narrative: GENERAL: Lying in the bed in no acute distress HEAD: Normocephalic, atraumatic. EYES: PERRLA and EOMI. NECK: Supple. CHEST: Clear to auscultation. No respiratory distress. HEART: RRR ABDOMEN: Soft, diffusely tender especially in the epigastrium, no guarding or rebound. BS hypoactive. EXTREMITIES: Normal range of motion. No edema. SKIN: Warm, dry, no rash. NEURO: No focal deficits. Alert and oriented x3. PSYCH: Normal mood and affect. DS: Data Data Completed and Pending Labs on day of discharge: Labs from last 24 hours 12/07/23 05:44 WBC 5.8 RBC 3.83 L Hgb 12.5 Hct 38.1 MCV 99.5 MCH 32.6 MCHC 32.8 RDW 12.5 Plt Count 144 L MPV 10.3 Immature Gran % (Auto) 0.3 Neut % (Auto) 55.1 Lymph % (Auto) 35.1 Elbert % (Auto) 7.1 Eos % (Auto) 1.9 Baso % (Auto) 0.5 Lymph # (Auto) 2.03 Elbert # (Auto) 0.4 Eos # (Auto) 0.1 Baso # (Auto) 0.0 Abs Immat Gran (auto) 0.02 Absolute Neuts (auto) 3.2 Absolute Nucleated RBC 0.0 Nucleated RBC % 0.0 Sodium 138 Potassium 4.1 Chloride 104 Carbon Dioxide 28 Anion Gap 6 L BUN 12 Creatinine 0.60 L Estim Creat Clear Calc 97 Estimated GFR > 60 Glucose 85 Calcium 9.0 Magnesium 1.5 L Total Bilirubin 0.6 AST 67 H ALT 77 H Alkaline Phosphatase 71 Total Protein 6.0 L Albumin 3.5 Discharge Plan Discharge Attending physician on discharge: Jovanni Sellers Consulting providers: Dimitry Lo; Allison
== END 2023-12-07 17:05 | disposition home or self-care (01) | DRG 282 ==
LOC: ANHED 22:12 → ANH3MEDSUR 23:48
PROVIDERS: Nurse Practitioner; Admitting Provider Internal Medicine; Emergency Provider Emergency Medicine; PCP Internal Medicine Gastroenterology; Visit Provider Nurse Practitioner
DX: K85.20 Alcohol induced acute pancreatitis without necrosis or infection (principal); K70.0 Alcoholic fatty liver; F10.139 Alcohol abuse with withdrawal, unspecified; F10.129 Alcohol abuse with intoxication, unspecified; Y90.8 Blood alcohol level of 240 mg/100 ml or more; I34.1 Nonrheumatic mitral (valve) prolapse; I47.10 Supraventricular tachycardia, unspecified; E87.20 Acidosis, unspecified; F17.210 Nicotine dependence, cigarettes, uncomplicated; F12.90 Cannabis use, unspecified, uncomplicated; F13.90 Sedative, hypnotic, or anxiolytic use, unspecified, uncomplicated; F41.9 Anxiety disorder, unspecified; G40.909 Epilepsy, unspecified, not intractable, without status epilepticus; K44.9 Diaphragmatic hernia without obstruction or gangrene; J42 Unspecified chronic bronchitis; Z91.148 Patient's other noncompliance with medication regimen for other reason
CPT/HCPCS: 36415; 71045; 74177; 76705; 80048; 80053; 80074; 80307; 81001; 81025; 82948; 83605; 83690; 83735; 85025; 85730; 87086; 87088; 93005; 96361; 96374; 96375; 96376; 99285; A9270; G0378; G0379; J1885; J2060; J2270; J2405; J3411; J3475; J7030; J7040; J7070; J7120; J7121; Q9967